=== PATIENT | male | born 1965 | race American Indian/Alaskan Native ===

== ENCOUNTER 2019-05-07 05:55 | Observation (INO) | payer MEDICARE ==
--- NOTE | 2019-05-07 06:52 | XRay Report ---
CHEST 1 VIEW INDICATION / CLINICAL INFORMATION: Chest Pain. COMPARISON: None available. FINDINGS: SUPPORT DEVICES: Right venous access catheter tip overlies the right atrium HEART / MEDIASTINUM: Heart size is normal. Atherosclerotic changes of the thoracic aorta. LUNGS / PLEURA: Interstitial markings are slightly prominent in both lungs. No pneumothorax. ADDITIONAL FINDINGS: Mild subsegmental atelectasis is identified in the right lower lobe. IMPRESSION: 1. Mild interstitial opacity. Signer Name: Vladimir Marmolejo MD Signed: 05/07/2019 6:47 AM Workstation Name: [id number]
[2019-05-07 07:10] LABS: Basophils # (Auto) 0.1 K/mm3 (0.0-0.1); Eosinophils # (Auto) 0.2 K/mm3 (0.0-0.4); Hematocrit 46.3 % (35.5-45.6); Hemoglobin 15.8 gm/dl (11.8-15.2); Lymphocytes # (Auto) 1.2 K/mm3 (1.2-5.4); Mean Corpuscular HGB Conc 34 % (32-34); Mean Corpuscular Volume 101 fl (84-94); Monocytes # (Auto) 0.9 K/mm3 (0.0-0.8); Monocytes % (Auto) 10.9 % (0.0-7.3); Red Blood Count 4.59 M/mm3 (3.65-5.03); Red Cell Distribution Width 17.6 % (13.2-15.2)
[2019-05-07 07:34] LABS: Calcium 9.6 mg/dL (8.4-10.2)
--- NOTE | 2019-05-07 08:14 | Emergency Department Report ---
ED General Adult HPI - General Chief complaint: Sore Throat Stated complaint: GENERAL ILLNESS Time Seen by Provider: 05/07/19 08:07 Source: patient, EMS Mode of arrival: Wheelchair Limitations: No Limitations - History of Present Illness Initial comments: Patient is a 54-year-old male that presents to emergency room with complaints of weakness, sore throat and body aches. Patient states this started yesterday. Patient states he went to his dialysis today but they were unable to do his dialysis due to his blood pressure being high. Patient denies chest pain shortness of breath. Patient denies fever. Patient denies chills. Patient denies nausea vomiting. Patient states his sore throat is a 6 out of 10. Patient states the pain is better with rest and worse with swallowing and eating. -: Sudden Consistency: constant Improves with: rest Worsens with: movement Associated Symptoms: cough, malaise. denies: confusion, chest pain, diaphoresis, fever/chills, headaches, loss of appetite, nausea/vomiting, rash, seizure, shortness of breath, syncope, weakness - Related Data Home Medications Medication Instructions Recorded Confirmed Last Taken Carvedilol [Coreg] 25 mg PO BID 07/22/13 04/05/16 11/29/15 Darunavir [Prezista] 800 mg PO QDAY 07/22/13 04/05/16 11/29/15 Pantoprazole [Protonix TAB] 40 mg PO QDAY 07/22/13 04/05/16 11/29/15 Ritonavir [Norvir] 100 mg PO QDAY 07/22/13 04/05/16 11/29/15 dilTIAZem XT (NF) [Taztia Xt (Nf)] 360 mg PO QDAY 07/22/13 04/05/16 11/29/15 hydrALAZINE [Apresoline TAB] 50 mg PO TID 07/22/13 04/05/16 11/29/15 Doxercalciferol 2.5 mcg IV Q48HR 11/10/14 04/05/16 11/29/15 Epoetin Levy 10,000 Unit [Procrit] 10,000 units SQ Q48HR 11/10/14 04/05/16 11/29/15 diphenhydrAMINE [Benadryl CAP] 25 mg PO Q6HR PRN 11/10/14 04/05/16 11/29/15 lamiVUDine [Epivir] 50 mg PO 3XW 11/10/14 04/05/16 11/29/15 Abacavir [Ziagen TAB] 300 mg PO BID 10/01/15 04/05/16 11/29/15 Abacavir [Ziagen TAB] 300 mg PO BID 10/01/15 04/05/16 11/29/15 Sevelamer Carbonate [Renvela] 800 mg PO 5XD 10/01/15 04/05/16 11/29/15 levETIRAcetam [Keppra TAB] 500 mg PO BID 10/01/15 04/05/16 11/29/15 Acetaminophen [Tylenol] 650 mg PO Q6HR PRN 04/05/16 04/05/16 Unknown AtorvaSTATin [Lipitor] 20 mg PO QDAY 04/05/16 04/05/16 Unknown Gemfibrozil [Lopid] 600 mg PO BID 04/05/16 04/05/16 Unknown Warfarin [Coumadin] 5 mg PO QDAY 04/05/16 04/05/16 Unknown Previous Rx's Medication Instructions Recorded Last Taken Type HYDROcodone/APAP 5-325 [[place] 1 each PO Q6HR PRN #20 tablet 01/02/16 Unknown Rx 5/325] Allergies Allergy/AdvReac Type Severity Reaction Status Date / Time No Known Allergies Allergy Verified 04/05/16 10:48 ED Review of Systems ROS: Stated complaint: GENERAL ILLNESS Other details as noted in HPI Constitutional: weakness. denies: chills, fever Eyes: denies: eye pain, eye discharge, vision change ENT: throat pain. denies: ear pain Respiratory: cough. denies: shortness of breath, wheezing Cardiovascular: denies: chest pain, palpitations Endocrine: no symptoms reported Gastrointestinal: denies: abdominal pain, nausea, diarrhea Genitourinary: denies: urgency, dysuria Musculoskeletal: denies: back pain, joint swelling, arthralgia Skin: denies: rash, lesions Neurological: denies: headache, weakness, paresthesias Psychiatric: denies: anxiety, depression Hematological/Lymphatic: denies: easy bleeding, easy bruising ED Past Medical Hx - Past Medical History Previous Medical History?: Yes Hx Hypertension: Yes Hx CVA: Yes Hx Heart Attack/AMI: No Hx Congestive Heart Failure: Yes Hx Diabetes: No Hx GERD: Yes Hx Renal Disease: Yes (M_W_F, last dialyzed yesterday) Hx Sickle Cell Disease: No Hx Seizures: Yes Hx Asthma: No Hx COPD: No Hx HIV: Yes Additional medical history: fistula right upper arm - Surgical History Past Surgical History?: Yes Additional Surgical History: right arm shunt /dialysis. Hemodialysis on Sunday - Family History Family history: no significant - Social History Smoking Status: Current Every Day Smoker Substance Use Type: None - Medications Home Medications: Home Medications Medication Instructions Recorded Confirmed Last Taken Type Carvedilol [Coreg] 25 mg PO BID 07/22/13 04/05/16 11/29/15 History Darunavir [Prezista] 800 mg PO QDAY 07/22/13 04/05/16 11/29/15 History Pantoprazole [Protonix TAB] 40 mg PO QDAY 07/22/13 04/05/16 11/29/15 History Ritonavir [Norvir] 100 mg PO QDAY 07/22/13 04/05/16 11/29/15 History dilTIAZem XT (NF) [Taztia Xt (Nf)] 360 mg PO QDAY 07/22/13 04/05/16 11/29/15 History hydrALAZINE [Apresoline TAB] 50 mg PO TID 07/22/13 04/05/16 11/29/15 History Doxercalciferol 2.5 mcg IV Q48HR 11/10/14 04/05/16 11/29/15 History Epoetin Levy 10,000 Unit [Procrit] 10,000 units SQ Q48HR 11/10/14 04/05/16 11/29/15 History diphenhydrAMINE [Benadryl CAP] 25 mg PO Q6HR PRN 11/10/14 04/05/16 11/29/15 Hist ory lamiVUDine [Epivir] 50 mg PO 3XW 11/10/14 04/05/16 11/29/15 History Abacavir [Ziagen TAB] 300 mg PO BID 10/01/15 04/05/16 11/29/15 History Abacavir [Ziagen TAB] 300 mg PO BID 10/01/15 04/05/16 11/29/15 History Sevelamer Carbonate [Renvela] 800 mg PO 5XD 10/01/15 04/05/16 11/29/15 History levETIRAcetam [Keppra TAB] 500 mg PO BID 10/01/15 04/05/16 11/29/15 History HYDROcodone/APAP 5-325 [[place] 1 each PO Q6HR PRN #20 tablet 01/02/16 04/05/16 Unknown Rx 5/325] Acetaminophen [Tylenol] 650 mg PO Q6HR PRN 04/05/16 04/05/16 Unknown History AtorvaSTATin [Lipitor] 20 mg PO QDAY 04/05/16 04/05/16 Unknown History Gemfibrozil [Lopid] 600 mg PO BID 04/05/16 04/05/16 Unknown History Warfarin [Coumadin] 5 mg PO QDAY 04/05/16 04/05/16 Unknown History ED Physical Exam - General Limitations: No Limitations General appearance: alert, in no apparent distress - Head Head exam: Present: atraumatic, normocephalic - Eye Eye exam: Present: normal appearance - ENT ENT exam: Present: mucous membranes moist - Expanded ENT Exam Expanded Throat exam: Positive: tonsillar erythema - Neck Neck exam: Present: normal inspection - Respiratory Respiratory exam: Present: normal lung sounds bilaterally. Absent: respiratory distress - Cardiovascular Cardiovascular Exam: Present: regular rate, normal rhythm. Absent: systolic murmur, diastolic murmur, rubs, gallop - GI/Abdominal GI/Abdominal exam: Present: soft, normal bowel sounds - Rectal Rectal exam: Present: deferred - Extremities Exam Extremities exam: Present: normal inspection - Back Exam Back exam: Present: normal inspection - Neurological Exam Neurological exam: Present: alert, oriented X3 - Psychiatric Psychiatric exam: Present: normal affect, normal mood - Skin Skin exam: Present: warm, dry, intact, normal color. Absent: rash ED Course Vital Signs 05/07/19 05/07/19 05/07/19 06:12 08:09 08:11 Temperature 97.6 F Pulse Rate 59 L 63 Respiratory 18 14 Rate Blood Pressure 142/86 167/99 O2 Sat by Pulse 97 95 93 Oximetry 05/07/19 05/07/19 05/07/19 08:12 08:30 09:00 Temperature Pulse Rate 69 66 Respiratory 21 15 Rate Blood Pressure 154/93 158/93 O2 Sat by Pulse 95 93 89 Oximetry 05/07/19 05/07/19 05/07/19 09:30 10:00 10:31 Temperature Pulse Rate 64 60 58 L Respiratory 18 14 12 Rate Blood Pressure 160/99 182/102 182/102 O2 Sat by Pulse 96 98 97 Oximetry 05/07/19 05/07/19 05/07/19 10:37 10:39 10:41 Temperature Pulse Rate 59 L 61 63 Respiratory 13 13 16 Rate Blood Pressure 182/102 182/102 182/102 O2 Sat by Pulse 85 87 Oximetry 05/07/19 05/07/19 05/07/19 10:43 10:45 10:47 Temperature Pulse Rate 61 58 L 56 L Respiratory 19 15 11 L Rate Blood Pressure 182/102 182/102 182/102 O2 Sat by Pulse 89 Oximetry 05/07/19 05/07/19 05/07/19 10:49 10:51 10:53 Temperature Pulse Rate 58 L 60 66 Respiratory 18 18 13 Rate Blood Pressure 182/102 182/102 182/102 O2 Sat by Pulse Oximetry 05/07/19 05/07/19 05/07/19 10:55 10:57 10:59 Temperature Pulse Rate 65 60 64 Respiratory 14 16 12 Rate Blood Pressure 182/102 182/102 182/102 O2 Sat by Pulse Oximetry 05/07/19 05/07/19 05/07/19 11:01 11:03 11:05 Temperature Pulse Rate 65 64 69 Respiratory 10 L 16 13 Rate Blood Pressure 182/102 182/102 182/102 O2 Sat by Pulse Oximetry 05/07/19 05/07/19 05/07/19 11:07 11:09 11:11 Temperature Pulse Rate 63 58 L 61 Respiratory 19 17 12 Rate Blood Pressure 182/102 182/102 182/102 O2 Sat by Pulse Oximetry 05/07/19 05/07/19 05/07/19 11:13 11:15 11:17 Temperature Pulse Rate 61 63 58 L Respiratory 18 18 16 Rate Blood Pressure 182/102 182/102 182/102 O2 Sat by Pulse Oximetry 05/07/19 05/07/19 05/07/19 11:19 11:21 11:23 Temperature Pulse Rate 55 L 63 62 Respiratory 18 14 23 Rate Blood Pressure 182/102 182/102 182/102 O2 Sat by Pulse Oximetry 07/05/07/19 05/07/19 11:25 11:27 11:29 Temperature Pulse Rate 57 L 70 70 Respiratory 16 17 14 Rate Blood Pressure 182/102 182/102 182/102 O2 Sat by Pulse Oximetry 05/07/19 05/07/19 05/07/19 11:31 11:33 11:35 Temperature Pulse Rate 64 60 62 Respiratory 13 13 21 Rate Blood Pressure 182/102 182/102 182/102 O2 Sat by Pulse 81 L Oximetry 05/07/19 05/07/19 05/07/19 11:37 11:39 11:41 Temperature Pulse Rate 60 64 59 L Respiratory 14 19 25 H Rate Blood Pressure 182/102 182/102 182/102 O2 Sat by Pulse 83 L Oximetry 05/07/19 05/07/19 05/07/19 11:43 11:45 11:47 Temperature Pulse Rate 59 L 63 60 Respiratory 25 H 18 11 L Rate Blood Pressure 182/102 182/102 182/102 O2 Sat by Pulse Oximetry 05/07/19 05/07/19 05/07/19 11:49 11:51 11:52 Temperature Pulse Rate 56 L 56 L 55 L Respiratory 17 17 16 Rate Blood Pressure 182/102 164/94 164/94 O2 Sat by Pulse 95 92 Oximetry 05/07/19 05/07/19 12:20 12:45 Temperature Pulse Rate 63 66 Respiratory Rate Blood Pressure 176/98 177/94 O2 Sat by Pulse Oximetry - Reevaluation(s) Reevaluation #1: Discussed all results with patient. Patient agrees with plan of care. Patient to be admitted to the hospitalist service. 05/07/19 11:05 - Consultations Consultation #1: nephro consult. nephro states to have pt admitted to hospitalists and place consult. 05/07/19 11:22 Consultation #2: Hospitalist consultation for admission. Hospitalist to admit patient and assume care of patient. Bridging orders placed 05/07/19 11:41 ED Medical Decision Making - Lab Data Result diagrams: 05/07/19 06:46 05/07/19 06:46 - EKG Data -: EKG Interpreted by Tx EKG shows normal: sinus rhythm, axis, intervals, QRS complexes, ST-T waves Rate: bradycardia - Radiology Data Radiology results: report reviewed CHEST 1 VIEW INDICATION / CLINICAL INFORMATION: Chest Pain. COMPARISON: None available. FINDINGS: SUPPORT DEVICES: Right venous access catheter tip overlies the right atrium HEART / MEDIASTINUM: Heart size is normal. Atherosclerotic changes of the thoracic aorta. LUNGS / PLEURA: Interstitial markings are slightly prominent in both lungs. No pneumothorax. ADDITIONAL FINDINGS: Mild subsegmental atelectasis is identified in the right lower lobe. IMPRESSION: 1. Mild interstitial opacity. - Medical Decision Making Patient is a 54-year-old male that presents emergent with complaints of weakness and sore throat, cough and high blood pressure. Patient was at his dialysis center and they found his blood pressure medicine to the ER for evaluation. Patient sore throat cough secondary to a viral upper respiratory infection. Patient's labs done and found to have hyperkalemia. Patient will be admitted for inpatient dialysis since the patient has R did miss his dialysis she will require urgent dialysis due to his potassium level. Nephrology consultation. Patient admitted to the hospitalist service. - Differential Diagnosis URI previous sore throat. Cough. High blood pressure. Missed dialysis Critical Care Time: Yes Critical care attestation.: If time is entered above; I have spent that time in minutes in the direct care of this critically ill patient, excluding procedure time. Critical Care Time: 35 minutes ED Disposition Clinical Impression: Hyperkalemia, Sore throat (viral), CKD (chronic kidney disease) requiring chronic dialysis, Cough, Missed dialysis URI (upper respiratory infection) Qualifiers: URI type: unspecified viral URI Qualified Code(s): J06.9 - Acute upper respiratory infection, unspecified Disposition: 09 OP ADMIT IP TO THIS HOSP Is pt being admited?: Yes Does the pt Need Aspirin: No Condition: Critical Time of Disposition: 11:26
[2019-05-07 09:11] LABS: Chol/HDL Ratio 3.95 %
[2019-05-07 11:03] LABS: Platelet Count 98 K/mm3 (140-440)
--- NOTE | 2019-05-07 11:20 | Consultation ---
History of Present Illness - Reason for Consult Consult date: 05/07/19 end stage renal disease, hyperkalemia - History of Present Illness The patient is a 54 YO male with history significant for Hypertension, HLD, ESRD on hemodialysis (MWF), Right atrial thrombus on anticoagulation with Coumadin diagnosed in October 2014, Tobacco smoking and HIV who presented to [facility] with complaints of sore throat, body aches and not feeling well. The symptoms started yesterday. Patient states that he went to his dialysis today morning but decided to come to the ER as he was not feeling well. Patient denies fever, chills, chest pain, shortness of breath, N, V, D, dizziness, syncope, leg swelling or rash. He was last dialyzed 2 days ago. His potassium is 5.7 today. Nephrology was consulted to manage ESRD. Medications and Allergies Allergies Allergy/AdvReac Type Severity Reaction Status Date / Time No Known Allergies Allergy Verified 04/05/16 10:48 Home Medications Medication Instructions Recorded Confirmed Last Taken Type Carvedilol [Coreg] 25 mg PO BID 07/22/13 05/07/19 05/06/19 History Darunavir [Prezista] 800 mg PO QDAY 07/22/13 05/07/19 05/06/19 History Ritonavir [Norvir] 100 mg PO QDAY 07/22/13 05/07/19 05/06/19 History dilTIAZem XT (NF) [Taztia Xt (Nf)] 360 mg PO QDAY 07/22/13 05/07/19 05/06/19 History hydrALAZINE [Apresoline TAB] 50 mg PO TID 07/22/13 05/07/19 05/06/19 History Doxercalciferol 2.5 mcg IV Q48HR 11/10/14 05/07/19 05/05/19 History Epoetin Levy 10,000 Unit [Procrit] 10,000 units SQ Q48HR 11/10/14 05/07/19 05/05/19 History diphenhydrAMINE [Benadryl CAP] 25 mg PO Q6HR PRN 11/10/14 05/07/19 05/06/19 History lamiVUDine [Epivir] 50 mg PO 3XW 11/10/14 05/07/19 05/06/19 History Abacavir [Ziagen TAB] 300 mg PO BID 10/01/15 05/07/19 05/06/19 History Abacavir [Ziagen TAB] 300 mg PO BID 10/01/15 05/07/19 05/06/19 History levETIRAcetam [Keppra TAB] 500 mg PO BID 10/01/15 05/07/19 05/06/19 History Acetaminophen [Tylenol] 650 mg PO Q6HR PRN 04/05/16 05/07/19 05/06/19 History AtorvaSTATin [Lipitor] 20 mg PO QDAY 04/05/16 05/07/19 05/06/19 History Gemfibrozil [Lopid] 600 mg PO BID 04/05/16 05/07/19 05/06/19 History Warfarin [Coumadin] 5 mg PO QDAY 04/05/16 05/07/19 05/06/19 History Ferric Citrate (Nf) [Auryxia] 410 mg PO TID 05/07/19 05/07/19 05/06/19 History Review of Systems Constitutional: fatigue, malaise, no weight loss, no weight gain, no fever, no chills, no anorexia, no weakness, no poor appetite Cardiovascular: high blood pressure, no chest pain, no orthopnea, no palpitations, no edema, no syncope, no lightheadedness, no shortness of breath, no dyspnea on exertion, no paroxysmal nocturnal dyspnea, no leg edema Respiratory: no cough, no hemoptysis, no shortness of breath, no dyspnea on exertion, no home oxygen Gastrointestinal: no abdominal pain, no nausea, no vomiting, no diarrhea, no melena, no hematochezia Genitourinary Male: no dysuria, no hematuria Rectal: no bleeding Musculoskeletal: no morning stiffness, no muscle weakness, no muscle cramps, no gait dysfunction Integumentary: no rash, no redness, no sores, no wounds, no jaundice Neurological: no seizures, no syncope, no convulsions, no aphasia, no change in speech, no change in mentation, no confusion Psychiatric: no memory loss Exam - Vital Signs Vital signs: Vital Signs Temp Pulse Resp BP Pulse Ox 97.6 F 59 L 18 142/86 97 05/07/19 06:12 05/07/19 06:12 05/07/19 06:12 05/07/19 06:12 05/07/19 06:12 - General Appearance General appearance: well-developed, well-nourished, appears stated age, other (no distress) EENT: ATNC, PERRL, mucous membranes moist, hearing intact, vision intact Neck: Present: neck supple, trachea midline Respiratory: Rales Heart: regular, S1S2, no murmurs Gastrointestinal: Present: normoactive bowel sounds. Absent: tenderness, distended Integumentary: no rash, warm and dry Neurologic: no focal deficit, no asterixis, alert and oriented x3 Musculoskeletal: Present: other (R arm AVG, no edema) Psychiatric: cooperative Results - Lab Results 05/07/19 06:46 05/07/19 06:46 Most recent lab results Calcium 9.6 mg/dL (8.4-10.2) 05/07/19 06:46 Assessment and Plan 1. ESRD: Patient is on maintenance hemodialysis three times a week, MWF schedule. HD today, orders placed. 2. FEN: Hyperkalemia, HD today. Volume overload, UF with HD today. 3. Pharyngitis: Culture was ordered in the ER. 4. H/o right atrial thrombus: On Coumadin. Follow INR. 5. HTN: BP well controlled. 6. HIV.
[2019-05-07] MEDS ORDERED: NACL 0.9% 100 ML IV PRN (11:39)
[2019-05-07 14:08] LABS: Hepatitis B Surface Antigen Non-Reactive (Negative); Hepatitis C Virus Antibody Non-Reactive (NonReactive)
[2019-05-07 16:20] VITALS: BP 127/95
[2019-05-07] MEDS ORDERED: NACL 0.9 (PRIMING MACHINE ONLY DIALYSIS) MC ONE (18:38)
--- NOTE | 2019-05-07 19:50 | Event Note ---
Date: 05/07/19 See history and physical in the reports Hyperkalemia End-stage renal disease
--- NOTE | 2019-05-07 20:19 | Discharge Summary ---
Providers - Providers Date of Admission: 05/07/19 11:48 Date of discharge: 05/07/19 Attending physician: FANTA CAREY 05/07/19 11:18 Consult to Physician [CONS] Stat Comment: DR BRANDIN FONTENOT W/ DR CEDILLO @[id number] Consulting Provider: SIMA CEDILLO Physician Instructions: Reason For Exam: hd [facility] Hospital[facility] Condition: Critical Hospital course: Patient is admitted for hyperkalemia and pharyngitis Patient also admitted for high blood pressure Patient had emergent hemodialysis After hemodialysis blood pressure came down to normal levels 127/95 Patient had elevated troponin levels secondary to incisional disease Patient wants to be discharged after the hemodialysis Patient doing well Discharge diagnosis Hypertensive emergency ESRD Anemia Hyperkalemia Elevated troponin level Disposition: DC-01 TO HOME OR SELFCARE Core Measure Documentation - Palliative Care Palliative Care/ Comfort Measures: Not Applicable - Core Measures Any of the following diagnoses?: none Exam - Constitutional Vitals: Temp Pulse Resp BP Pulse Ox 98.4 F 68 18 127/95 98 05/07/19 16:18 05/07/19 16:16 05/07/19 16:20 05/07/19 16:18 05/07/19 16:16 General appearance: Present: no acute distress, well-nourished - EENT Eyes: Present: PERRL ENT: hearing intact, clear oral mucosa - Neck Neck: Present: supple, normal ROM - Respiratory Respiratory effort: normal Respiratory: bilateral: CTA - Cardiovascular Heart Sounds: Present: S1 & S2. Absent: rub, click - Extremities Extremities: pulses symmetrical, No edema Peripheral Pulses: within normal limits - Abdominal General gastrointestinal: Present: soft, non-tender, non-distended, normal bowel sounds Male genitourinary: Present: normal - Integumentary Integumentary: Present: clear, warm, dry - Musculoskeletal Musculoskeletal: gait normal, strength equal bilaterally - Psychiatric Psychiatric: appropriate mood/affect, intact judgment & insight - Neurologic Neurologic: CNII-XII intact, moves all extremities Plan Activity: no restrictions Diet: renal Follow up with: KEVIN CAMACHOCHESAPEAKE MD MARIZOL [Primary Care Provider] - 3-5 Days CHRISTIANO GOLDSTEIN MD [Staff Physician] - 7 Days
--- NOTE | 2019-05-07 20:22 | History and Physical Report ---
CHIEF COMPLAINT: 1. Sore throat. 2. Generalized body aches. HISTORY OF PRESENT ILLNESS: A 54-year-old male with history of HIV, hypertension, end-stage renal disease, comes into the ER for sore throat, generalized weakness and body aches. All these symptoms started yesterday. The patient went to the dialysis and was unable to do his dialysis because of his high blood pressure and was sent from dialysis center to the Emergency Room for treatment of the high blood pressure. The patient denies nausea or vomiting. No fever. The patient states that the sore throat is about 6/10. Dry cough present. No productive cough. Generalized body aches present. PAST MEDICAL HISTORY: Significant for hypertension, HIV, gastroesophageal reflux disease, anemia secondary to end-stage renal disease, seizure disorder, hyperlipidemia, hypertriglyceridemia, anticoagulation. CURRENT MEDICATIONS: On the chart. PAST SURGICAL HISTORY: Significant for right arm shunt dialysis, hemodialysis on Sunday, Sunday, and Sunday. FAMILY HISTORY: Hypertension. SOCIAL HISTORY: Current every day smoker, a pack a day. REVIEW OF SYSTEMS: Significant for sore throat and generalized weakness and generalized body aches. Otherwise, review of systems negative. A 14-point review of systems done. PHYSICAL EXAMINATION: GENERAL: Middle-aged male, cooperative during examination. VITAL SIGNS: Blood pressure is 149/92, the initial blood pressure was 182/102; temperature is 98; pulse is 58; respirations 14. HEENT: Unremarkable. Posterior pharynx is normal. NECK: Supple, no lymphadenopathy, no thyromegaly. LUNGS: Clear to auscultation and percussion. Good air entry. CARDIOVASCULAR: S1, S2 heard. No gallop, no murmur, no rub. Apical impulse in left fifth intercostal space and midclavicular line. ABDOMEN: Soft and benign. No hepatosplenomegaly, no guarding, no rigidity. Hernial orifices are normal. EXTREMITIES: Good pedal pulses. No pedal edema. NERVOUS SYSTEM: Alert and oriented x 4, nonfocal exam. SKIN: Normal. LABORATORY DATA: White count is 8200, H and H is 15.8 and 46.3, platelet count is 98. Sodium is 130, potassium is 5.7, chloride is 89.5, BUN and creatinine is 33 and 11.0, alkaline phosphatase is 221. Troponin is 0.060, 0.058 and 0.072. Hepatitis profile is negative. A chest x-ray was normal. No acute findings. ASSESSMENT AND PLAN: 1. Hypertensive emergency. The patient to get his regular blood pressure medications. Hydralazine 10 mg IV p.r.n. The patient was given hydralazine in the Emergency Room. 2. End-stage renal disease. Continue hemodialysis. 3. Hyperkalemia. Continue low potassium bath hemodialysis to bring the potassium down. 4. Human immunodeficiency virus. Continue antiretroviral agents. 5. Seizure disorder. Continue with Keppra 500 mg twice a day. 6. Hypertriglyceridemia. Continue gemfibrozil. 7. Anemia. Continue ferrous sulfate and Epogen. 8. Anticoagulation. Continue Coumadin and monitor his INR. 9. Deep venous thrombosis prophylaxis with heparin 5000 q. 12 and gastrointestinal prophylaxis. In summary, the patient has hypertensive emergency, end-stage renal disease, anemia, elevated troponin which is nonspecific, seizure disorder, GERD, hyperlipidemia and hypertriglyceridemia. JOB# [id number] DARIAM/NTS
[2019-05-07] MEDS ORDERED: LOPID PO SCH (22:00)
[2019-05-07] MEDS ORDERED: ZIAGEN PO SCH (22:00)
[2019-05-07] MEDS ORDERED: KEPPRA PO SCH (22:00)
[2019-05-08] MEDS ORDERED: APRESOLINE PO SCH (08:00)
[2019-05-08] MEDS ORDERED: EPIVIR PO SCH (10:00)
[2019-05-08] MEDS ORDERED: NORVIR PO SCH (10:00)
== END 2019-05-07 20:10 | disposition home or self-care (01) ==
LOC: ED 05:55 → 3A 11:48
PROVIDERS: ADMIT Internal Medicine; ATTEND Internal Medicine
DX: I16.1 Hypertensive emergency (principal); E87.5 Hyperkalemia; I13.2 Hypertensive heart and chronic kidney disease with heart failure and with stage 5 chronic kidney disease, or end stage renal disease; I50.9 Heart failure, unspecified; F17.210 Nicotine dependence, cigarettes, uncomplicated; E78.5 Hyperlipidemia, unspecified; J02.9 Acute pharyngitis, unspecified; N18.6 End stage renal disease; B20 Human immunodeficiency virus [HIV] disease; G40.909 Epilepsy, unspecified, not intractable, without status epilepticus; E78.1 Pure hyperglyceridemia; D63.1 Anemia in chronic kidney disease; R79.89 Other specified abnormal findings of blood chemistry; K21.9 Gastro-esophageal reflux disease without esophagitis; Z99.2 Dependence on renal dialysis; Z79.899 Other long term (current) drug therapy
CPT/HCPCS: 36415; 71045; 80053; 80061; 80074; 83690; 84484; 85025; 87116; 87430; 93005; 93010; 99291; G0257; G0378; J7030

== ENCOUNTER 2020-09-29 06:32 | Inpatient (IN) | payer MEDICARE ==
--- NOTE | 2020-09-29 12:24 | XRay Report ---
CHEST 1 VIEW INDICATION: cough. COMPARISON: 05/07/2020 FINDINGS: SUPPORT DEVICES: Stable support device positioning. HEART: Within normal limits. LUNGS/PLEURA: Subtle patchy bibasilar airspace disease. ADDITIONAL FINDINGS: None. IMPRESSION: 1. Pulmonary findings as above. Signer Name: Fletcher Iqbal MD Signed: 09/29/2020 12:19 PM Workstation Name: [id number]
[2020-09-29] MEDS ORDERED: traMADol 50 MG TAB PO ONE (12:51)
--- NOTE | 2020-09-29 13:15 | Emergency Department Report ---
ED General Adult HPI - General Chief complaint: Dizziness Stated complaint: FLU LIKE SYMPTOMS Time Seen by Provider: 09/29/20 11:48 Source: patient, EMS Mode of arrival: Wheelchair Limitations: No Limitations - History of Present Illness Initial comments: This is a 55-year-old with HIV on chronic hemodialysis chronically anticoagulated who was sent by his hemodialysis clinic because he referred flulike symptoms. He tells me he has been weak in general. He has had a cough but he states it has been occasional. He does not refer fever. He is really not actively complaining of any specific symptoms at the time of my encounter. He states that he has chronic pain in general and takes tramadol. He does not complain of any acute painful area. Last discharge summary few months ago: (1) Acute encephalopathy Current Visit: Yes Status: Acute Plan to address problem: Etiology unclear Probably metabolic secondary to uremia and possible seizure which was not witnessed MRI was ordered but not done Patient's confusion and encephalopathy improved back to normal hence patient being discharged (2) End-stage renal disease needing dialysis Current Visit: Yes Status: Chronic Plan to address problem: Nephrology consulted Due for dialysis on Sunday (3) HIV (human immunodeficiency virus infection) Current Visit: Yes Status: Chronic Qualifiers: HIV symptom status: asymptomatic Qualified Code(s): Z21 - Asymptomatic human immunodeficiency virus [HIV] infection status Plan to address problem: Continue antiretrovirals (4) Paroxysmal atrial fibrillation Current Visit: Yes Status: Chronic Plan to address problem: Continue Coumadin and monitor INR (5) Hypertension Current Visit: No Status: Chronic Qualifiers: Hypertension type: essential hypertension Qualified Code(s): I10 - Essential (primary) hypertension Plan to address problem: Continue antihypertensives (6) Seizure Current Visit: No Status: Chronic Qualifiers: Convulsion type: unspecified Qualified Code(s): R56.9 - Unspecified convulsions Plan to address problem: Continue Lamictal (7) Hyperlipidemia Current Visit: Yes Status: Chronic Qualifiers: Hyperlipidemia type: mixed hyperlipidemia Qualified Code(s): E78.2 - Mixed hyperlipidemia Plan to address problem: Continue statins and fenofibrate (8) Anemia Current Visit: No Status: Chronic Qualifiers: Anemia type: due to chronic kidney disease Plan to address problem: Patient on Epogen (9) Elevated troponin Current Visit: Yes Status: Chronic Plan to address problem: NSTEMI 2 Secondary to end-stage renal disease No work-up -: days(s) Associated Symptoms: denies other symptoms, weakness - Related Data Home Medications Medication Instructions Recorded Confirmed Last Taken Darunavir [Prezista] 800 mg PO QDAY 07/22/13 05/08/20 05/06/19 Ritonavir 100 mg PO QDAY 07/22/13 05/08/20 05/06/19 carvediloL [Coreg] 25 mg PO BID 07/22/13 05/08/20 05/06/19 dilTIAZem XT (NF) [Taztia Xt (Nf)] 360 mg PO QDAY 07/22/13 05/08/20 05/06/19 hydrALAZINE [Apresoline TAB] 50 mg PO TID 07/22/13 05/08/20 05/06/19 lamiVUDine [Epivir] 50 mg PO 3XW 11/10/14 05/08/20 05/06/19 Abacavir [Ziagen TAB] 300 mg PO BID 10/01/15 05/08/20 05/06/19 Abacavir [Ziagen TAB] 300 mg PO BID 10/01/15 05/08/20 05/06/19 levETIRAcetam [Keppra TAB] 500 mg PO BID 10/01/15 05/08/20 05/06/19 AtorvaSTATin [Lipitor] 20 mg PO QDAY 04/05/16 05/08/20 05/06/19 Gemfibrozil [Lopid] 600 mg PO BID 04/05/16 05/08/20 05/06/19 Warfarin [Coumadin] 5 mg PO QDAY 04/05/16 05/08/20 05/06/19 Ferric Citrate (Nf) [Auryxia] 410 mg PO TID 05/07/19 05/08/20 05/06/19 Allergies Allergy/AdvReac Type Severity Reaction Status Date / Time No Known Allergies Allergy Verified 04/05/16 10:48 ED Review of Systems ROS: Stated complaint: FLU LIKE SYMPTOMS Other details as noted in HPI Constitutional: weakness Eyes: denies: eye pain, vision change ENT: denies: throat pain, epistaxis Respiratory: SOB with exertion. denies: orthopnea, stridor Cardiovascular: denies: chest pain, palpitations Endocrine: no symptoms reported Gastrointestinal: denies: abdominal pain, vomiting Genitourinary: as per HPI Musculoskeletal: other (Essentially chronic allodynia) Skin: denies: rash, lesions Neurological: denies: headache, weakness Psychiatric: denies: anxiety, depression Hematological/Lymphatic: denies: easy bleeding, easy bruising ED Past Medical Hx - Past Medical History Hx Hypertension: Yes Hx CVA: Yes Hx Heart Attack/AMI: No Hx Congestive Heart Failure: Yes Hx Diabetes: No Hx GERD: Yes Hx Renal Disease: Yes (M_W_F, last dialyzed M) Hx Sickle Cell Disease: No Hx Seizures: Yes Hx Asthma: Yes (bronchitis) Hx COPD: No Hx HIV: Yes Additional medical history: fistula right upper arm - Surgical History Additional Surgical History: right arm shunt /dialysis. Hemodialysis on Sunday - Social History Smoking Status: Current Every Day Smoker - Medications Home Medications: Home Medications Medication Instructions Recorded Confirmed Last Taken Type Darunavir [Prezista] 800 mg PO QDAY 07/22/13 05/08/20 05/06/19 History Ritonavir 100 mg PO QDAY 07/22/13 05/08/20 05/06/19 History carvediloL [Coreg] 25 mg PO BID 07/22/13 05/08/20 05/06/19 History dilTIAZem XT (NF) [Taztia Xt (Nf)] 360 mg PO QDAY 07/22/13 05/08/20 05/06/19 History hydrALAZINE [Apresoline TAB] 50 mg PO TID 07/22/13 05/08/20 05/06/19 History lamiVUDine [Epivir] 50 mg PO 3XW 11/10/14 05/08/20 05/06/19 History Abacavir [Ziagen TAB] 300 mg PO BID 10/01/15 05/08/20 05/06/19 History Abacavir [Ziagen TAB] 300 mg PO BID 10/01/15 05/08/20 05/06/19 History levETIRAcetam [Keppra TAB] 500 mg PO BID 10/01/15 05/08/20 05/06/19 History AtorvaSTATin [Lipitor] 20 mg PO QDAY 04/05/16 05/08/20 05/06/19 History Gemfibrozil [Lopid] 600 mg PO BID 04/05/16 05/08/2005/06/19 History Warfarin [Coumadin] 5 mg PO QDAY 04/05/16 05/08/20 05/06/19 History Ferric Citrate (Nf) [Auryxia] 410 mg PO TID 05/07/19 05/08/20 05/06/19 History ED Physical Exam - General Limitations: No Limitations General appearance: alert - Head Head exam: Present: atraumatic - Eye Eye exam: Absent: scleral icterus - ENT ENT exam: Absent: mucous membranes moist - Neck Neck exam: Absent: tenderness, meningismus - Respiratory Respiratory exam: Present: normal lung sounds bilaterally. Absent: respiratory distress - Cardiovascular Cardiovascular Exam: Present: regular rate, normal rhythm. Absent: systolic murmur, diastolic murmur, rubs, gallop - GI/Abdominal GI/Abdominal exam: Present: soft, normal bowel sounds. Absent: distended, tenderness, guarding, rebound - Extremities Exam Extremities exam: Present: other (Shunt right upper extremity) ED Course Vital Signs 09/29/20 09/29/20 09/29/20 06:49 11:19 11:45 Temperature 97.3 F L 97.8 F Pulse Rate 74 75 76 Respiratory 18 18 22 Rate Blood Pressure 140/84 135/76 155/83 O2 Sat by Pulse 100 95 100 Oximetry 09/29/20 09/29/20 09/29/20 11:56 12:01 12:15 Temperature Pulse Rate 92 H 77 75 Respiratory 18 36 H 26 H Rate Blood Pressure 135/53 135/53 O2 Sat by Pulse 95 99 97 Oximetry 09/29/20 09/29/20 09/29/20 12:31 12:45 12:57 Temperature Pulse Rate 77 78 Respiratory 18 20 18 Rate Blood Pressure 135/53 135/53 O2 Sat by Pulse 98 100 Oximetry - Reevaluation(s) Reevaluation #1: Patient was found to have increased pulmonary markings. I suspect that this is fluid overload. However in consideration of his viral prodrome he is admitted as PUI. He has a very low lymphocyte count and an estimated CD4 count would be under 250, total of 700. He is certainly immunocompromise. He would be at high risk for bad outcome should he have a Covid infection. Patient was found to be hyperkalemic. He is not eligible for outpatient dialysis today. I explained the situation to the dialysis nurse practitioner. They will enter dialysis orders. Patient will be admitted by hospitalist staff. 09/29/20 15:20 ED Medical Decision Making - Lab Data Result diagrams: 09/29/20 12:46 09/29/20 12:46 Laboratory Results - last 24 hr 09/29/20 09/29/20 09/29/20 12:46 12:46 12:46 WBC RBC Hgb Hct MCV MCH MCHC RDW Plt Count Lymph % (Auto) [place] % (Auto) Eos % (Auto) Baso % (Auto) Lymph # (Auto) [place] # (Auto) Eos # (Auto) Baso # (Auto) Seg Neutrophils % Seg Neutrophils # PT 38.4 H INR 3.84 H APTT 46.2 H D-Dimer 145.03 Sodium Potassium Chloride Carbon Dioxide Anion Gap BUN Creatinine Estimated GFR BUN/Creatinine Ratio Glucose 100 Lactic Acid Calcium Magnesium Ferritin 1292.0 H Total Bilirubin Direct Bilirubin Indirect Bilirubin AST ALT Alkaline Phosphatase Lactate Dehydrogenase 223 H Troponin T C-Reactive Protein 3.20 H NT-Pro-B Natriuret Pep Total Protein Albumin Albumin/Globulin Ratio Procalcitonin 09/29/20 09/29/20 09/29/20 12:46 12:46 12:46 WBC 5.2 RBC 3.09 L Hgb 10.3 L Hct 30.8 L MCV 100 H MCH 33 H MCHC 33 RDW 19.4 H Plt Count 119 L Lymph % (Auto) 28.4 [place] % (Auto) 9.9 H Eos % (Auto) 3.3 Baso % (Auto) 1.0 Lymph # (Auto) 1.5 [place] # (Auto) 0.5 Eos # (Auto) 0.2 Baso # (Auto) 0.1 Seg Neutrophils % 57.4 Seg Neutrophils # 3.0 PT INR APTT D-Dimer Sodium 133 L Potassium 5.5 H Chloride 88.1 L Carbon Dioxide 29 Anion Gap 21 BUN 59 H Creatinine 13.0 H Estimated GFR 5 BUN/Creatinine Ratio 5 Glucose 101 H Lactic Acid Calcium 10.2 Magnesium 2.90 H Ferritin Total Bilirubin 0.60 Direct Bilirubin 0.3 H Indirect Bilirubin 0.3 AST 13 ALT 8 Alkaline Phosphatase 145 H Lactate Dehydrogenase Troponin T 0.099 H C-Reactive Protein NT-Pro-B Natriuret Pep 522128 H Total Protein 6.5 Albumin 3.7 L Albumin/Globulin Ratio 1.3 Procalcitonin 0.22 09/29/20 12:46 WBC RBC Hgb Hct MCV MCH MCHC RDW Plt Count Lymph % (Auto) [place] % (Auto) Eos % (Auto) Baso % (Auto) Lymph # (Auto) [place] # (Auto) Eos # (Auto) Baso # (Auto) Seg Neutrophils % Seg Neutrophils # PT INR APTT D-Dimer Sodium Potassium Chloride Carbon Dioxide Anion Gap BUN Creatinine Estimated GFR BUN/Creatinine Ratio Glucose Lactic Acid 1.40 Calcium Magnesium Ferritin Total Bilirubin Direct Bilirubin Indirect Bilirubin AST ALT Alkaline Phosphatase Lactate Dehydrogenase Troponin T C-Reactive Protein NT-Pro-B Natriuret Pep Total Protein Albumin Albumin/Globulin Ratio Procalcitonin - EKG Data -: EKG Interpreted by Me EKG shows normal: sinus rhythm - EKG Data Interpretation: other (Left axis deviation/LAFB. LVH. Affect:. Poor R wave progression. Consistent with LVH.) - Radiology Data Radiology results: image reviewed Think most consistent with mild fluid overload but consider other differential for increased airspace markings. Critical care attestation.: If time is entered above; I have spent that time in minutes in the direct care of this critically ill patient, excluding procedure time. ED Disposition Clinical Impression: Hyperkalemia, ESRD needing dialysis, Over-anticoagulated, Person under investigation for COVID-19, CKD (chronic kidney disease) requiring chronic dialysis, Elevated troponin Cardiomyopathy Qualifiers: Cardiomyopathy type: unspecified Qualified Code(s): I42.9 - Cardiomyopathy, unspecified Volume overload Qualifiers: Hypervolemia type: unspecified Qualified Code(s): E87.70 - Fluid overload, unspecified Disposition: OP ADMIT IP TO THIS HOSP Is pt being admited?: Yes Does the pt Need Aspirin: No (Over anticoagulated) Condition: Stable Referrals: PRIMARY CARE, [Primary Care Provider] - 3-5 Days Time of Disposition: 15:23
[2020-09-29 13:17] LABS: Basophils # (Auto) 0.1 K/mm3 (0.0-0.1); Eosinophils # (Auto) 0.2 K/mm3 (0.0-0.4); Eosinophils % (Auto) 3.3 % (0.0-4.3); Hematocrit 30.8 % (35.5-45.6); Hemoglobin 10.3 gm/dl (11.8-15.2); Lymphocytes # (Auto) 1.5 K/mm3 (1.2-5.4); Lymphocytes % (Auto) 28.4 % (13.4-35.0); Mean Corpuscular HGB Conc 33 % (32-34); Mean Corpuscular Volume 100 fl (84-94); Monocytes # (Auto) 0.5 K/mm3 (0.0-0.8); Monocytes % (Auto) 9.9 % (0.0-7.3); Platelet Count 119 K/mm3 (140-440); Red Blood Count 3.09 M/mm3 (3.65-5.03); Red Cell Distribution Width 19.4 % (13.2-15.2)
[2020-09-29 13:25] LABS: INR 3.84 (0.87-1.13); Partial Thromboplastin Time 46.2 Sec. (24.2-36.6)
[2020-09-29 13:36] LABS: Albumin 3.7 g/dL (3.9-5); Bilirubin,Direct 0.3 mg/dL (0-0.2); Calcium 10.2 mg/dL (8.4-10.2)
[2020-09-29 13:37] LABS: C-Reactive Protein 3.2 mg/dL (0.00-1.30)
--- NOTE | 2020-09-29 13:38 | History and Physical Report ---
History of Present Illness Chief complaint: I feel like I have the flu or something History of present illness: 55 YO Male with HIV, ESRD on HD(M,W,F), HTN, HLD, Paroxysmal Atrial Fib, Anemia Chronic Disease, GERD, CHF, Seizure Disorder, Nicotine Dependence presents to ED for evaluation. Patient states that he "has not been feeling well" over the past 4 days with persistent symptoms over the same timeframe. Patient acknowledges fatigue, malaise, weakness, decreased exercise tolerance, dry cough. Patient presented to his outpatient dialysis center today for his routine scheduled dialysis. Prior to dialysis patient reported "I feel to have the flu". EMS was notified and the patient was subsequently transported to [facility] for further care and evaluation. Patient seen and evaluated in the emergency department. Lab and imaging studies reviewed. Patient initiated on coronavirus protocol prior to my evaluation. Patient found to have end-stage renal disease, paroxysmal atrial fibrillation, and symptoms consistent with congestive heart failure. Patient admitted to medical floor and initiated on CHF protocol, as well as coronavirus protocol. Nephrology team consulted in ED. Patient denies chills, chest pain, palpitations, skin rash, recent ill contacts. Patient is uncertain regarding his COVID-19 exposure. Prior admission on 05/07/2020 reviewed. All medication listed at time of admission has been reconciled. Past History Past Medical History: atrial fib, ESRD, GERD, HIV/AIDS, hypertension, hyperlipidemia, other (See HPI) Past Surgical History: Other (Dialysis access) Social history: single, smoking. denies: alcohol abuse, prescription drug abuse Family history: diabetes, hypertension Medications and Allergies Allergies Allergy/AdvReac Type Severity Reaction Status Date / Time No Known Allergies Allergy Verified 04/05/16 10:48 Home Medications Medication Instructions Recorded Confirmed Last Taken Type Darunavir [Prezista] 800 mg PO QDAY 07/22/13 05/08/20 05/06/19 History Ritonavir 100 mg PO QDAY 07/22/13 05/08/20 05/06/19 History carvediloL [Coreg] 25 mg PO BID 07/22/13 05/08/20 05/06/19 History dilTIAZem XT (NF) [Taztia Xt (Nf)] 360 mg PO QDAY 07/22/13 05/08/20 05/06/19 H istory hydrALAZINE [Apresoline TAB] 50 mg PO TID 07/22/13 05/08/20 05/06/19 History lamiVUDine [Epivir] 50 mg PO 3XW 11/10/14 05/08/20 05/06/19 History Abacavir [Ziagen TAB] 300 mg PO BID 10/01/15 05/08/20 05/06/19 History Abacavir [Ziagen TAB] 300 mg PO BID 10/01/15 05/08/20 05/06/19 History levETIRAcetam [Keppra TAB] 500 mg PO BID 10/01/15 05/08/20 05/06/19 History AtorvaSTATin [Lipitor] 20 mg PO QDAY 04/05/16 05/08/20 05/06/19 History Gemfibrozil [Lopid] 600 mg PO BID 04/05/16 05/08/20 05/06/19 History Warfarin [Coumadin] 5 mg PO QDAY 04/05/16 05/08/20 05/06/19 History Ferric Citrate (Nf) [Auryxia] 410 mg PO TID 05/07/19 05/08/20 05/06/19 History Review of Systems Constitutional: fever, fatigue, weakness, malaise Ears, nose, mouth and throat: no ear pain, no ear discharge, no tinnitis, no decreased hearing, no nose pain, no nasal congestion Cardiovascular: no chest pain, no orthopnea, no rapid/irregular heart beat, no lightheadedness Respiratory: cough, shortness of breath, no excessive sputum, no hemoptysis Gastrointestinal: no abdominal pain, no nausea, no vomiting, no diarrhea, no constipation Genitourinary Male: no hematuria, no flank pain, no discharge, no urinary frequency, no urinary hesitancy Rectal: no pain, no incontinence, no bleeding Musculoskeletal: no neck stiffness, no neck pain, no arm numbness/tingling, no shooting leg pain Integumentary: no rash, no pruritis, no redness, no sores, no wounds Neurological: no transient paralysis, no paralysis, no weakness, no parathesias, no numbness, no tingling Psychiatric: no anxiety, no memory loss, no sleep disturbances, no insomnia, no hypersomnia, no change in libido Endocrine: no cold intolerance, no heat intolerance, no polyphagia, no polyuria Hematologic/Lymphatic: no easy bruising, no easy bleeding Allergic/Immunologic: no urticaria, no allergic rhinitis Exam - Constitutional Vitals: Temp Pulse Resp BP Pulse Ox 97.8 F 78 18 135/53 100 09/29/20 11:19 09/29/20 12:45 09/29/20 12:57 09/29/20 12:45 09/29/20 12:45 General appearance: Present: mild distress - EENT Eyes: Present: PERRL ENT: hearing intact, clear oral mucosa - Neck Neck: Present: supple, normal ROM - Respiratory Respiratory effort: normal Respiratory: bilateral: CTA - Cardiovascular Rhythm: irregularly irregular Heart Sounds: Present: S1 & S2. Absent: rub, click - Extremities Extremities: pulses symmetrical, No edema Peripheral Pulses: within normal limits - Abdominal General gastrointestinal: Present: soft, non-tender, non-distended, normal bowel sounds Male genitourinary: Present: normal - Integumentary Integumentary: Present: clear, warm, dry - Musculoskeletal Musculoskeletal: gait normal, strength equal bilaterally - Psychiatric Psychiatric: appropriate mood/affect, intact judgment & insight - Neurologic Neurologic: CNII-XII intact, moves all extremities HEART Score - HEART Score Troponin: Troponin T 0.099 ng/mL (0.00-0.029) H 09/29/20 12:46 Results - Labs CBC & Chem 7: 09/29/20 12:46 09/29/20 17:28 Labs: Abnormal lab results 09/29/20 09/29/20 09/29/20 Range/Units 12:46 12:46 12:46 RBC 3.09 L (3.65-5.03) M/mm3 Hgb 10.3 L (11.8-15.2) gm/dl Hct 30.8 L (35.5-45.6) % MCV 100 H (84-94) fl MCH 33 H (28-32) pg RDW 19.4 H (13.2-15.2) % Plt Count 119 L (140-440) K/mm3 [place] % (Auto) 9.9 H (0.0-7.3) % PT 38.4 H (12.2-14.9) Sec. INR 3.84 H (0.87-1.13) APTT 46.2 H (24.2-36.6) Sec. Sodium (137-145) mmol/L Potassium (3.6-5.0) mmol/L Chloride (98-107) mmol/L BUN (9-20) mg/dL Creatinine (0.8-1.3) mg/dL Glucose (75-100) mg/dL Magnesium (1.7-2.3) mg/dL Direct Bilirubin (0-0.2) mg/dL Alkaline Phosphatase (35-129) units/L Lactate Dehydrogenase 223 H (91-180) units/L Troponin T (0.00-0.029) ng/mL C-Reactive Protein 3.20 H (0.00-1.30) mg/dL Albumin (3.9-5) g/dL 09/29/20 Range/Units 12:46 RBC (3.65-5.03) M/mm3 Hgb (11.8-15.2) gm/dl Hct (35.5-45.6) % MCV (84-94) fl MCH (28-32) pg RDW (13.2-15.2) % Plt Count (140-440) K/mm3 [place] % (Auto) (0.0-7.3) % PT (12.2-14.9) Sec. INR (0.87-1.13) APTT (24.2-36.6) Sec. Sodium 133 L (137-145) mmol/L Potassium 5.5 H (3.6-5.0) mmol/L Chloride 88.1 L (98-107) mmol/L BUN 59 H (9-20) mg/dL Creatinine 13.0 H (0.8-1.3) mg/dL Glucose 101 H (75-100) mg/dL Magnesium 2.90 H (1.7-2.3) mg/dL Direct Bilirubin 0.3 H (0-0.2) mg/dL Alkaline Phosphatase 145 H (35-129) units/L Lactate Dehydrogenase (91-180) units/L Troponin T 0.099 H (0.00-0.029) ng/mL C-Reactive Protein (0.00-1.30) mg/dL Albumin 3.7 L (3.9-5) g/dL Assessment and Plan - Patient Problems (1) CHF (congestive heart failure) Current Visit: Yes Status: Acute Qualifiers: Heart failure type: systolic Heart failure chronicity: acute on chronic Qualified Code(s): I50.23 - Acute on chronic systolic (congestive) heart failure Plan to address problem: Strict I/O, monitor urine output every shift, daily weight, afterload reduction, blood pressure control, diuresis, dialysis as per renal team. (2) Person under investigation for COVID-19 Current Visit: Yes Status: Acute Plan to address problem: Coronavirus protocol: Contact precautions, isolation precautions, coronavirus PCR ordered and is pending at time of admission, supportive care, prone positioning while in bed, (3) End-stage renal disease needing dialysis Current Visit: Yes Status: Chronic Plan to address problem: Strict I's/O, monitor urine output every shift, daily weight, avoid nephrotoxic agents, nephrology team consulted. Dialysis as per renal team. (4) Hyperlipidemia Current Visit: No Status: Chronic Qualifiers: Hyperlipidemia type: mixed hyperlipidemia Qualified Code(s): E78.2 - Mixed hyperlipidemia Plan to address problem: Low-cholesterol diet, statin therapy, (5) Hypertension Current Visit: No Status: Chronic Qualifiers: Hypertension type: essential hypertension Qualified Code(s): I10 - Essential (primary) hypertension Plan to address problem: Monitor blood pressure every shift, continue medical management. (6) Paroxysmal atrial fibrillation Current Visit: No Status: Chronic Plan to address problem: Continue therapeutic anticoagulation with Coumadin. Pharmacy consulted. (7) DVT prophylaxis Current Visit: No Status: Acute Plan to address problem: SCD to bilateral lower extremities while in bed continue therapeutic anticoa gulation
--- NOTE | 2020-09-29 15:25 | Emergency Department Report ---
ED General Adult HPI - General Chief complaint: Dizziness Stated complaint: FLU LIKE SYMPTOMS Time Seen by Provider: 09/29/20 11:48 Source: patient, EMS Mode of arrival: Wheelchair Limitations: No Limitations - History of Present Illness Severity scale (0 -10): 7 Associated Symptoms: denies other symptoms, weakness - Related Data Home Medications Medication Instructions Recorded Confirmed Last Taken Darunavir [Prezista] 800 mg PO QDAY 07/22/13 05/08/20 05/06/19 Ritonavir 100 mg PO QDAY 07/22/13 05/08/20 05/06/19 carvediloL [Coreg] 25 mg PO BID 07/22/13 05/08/20 05/06/19 dilTIAZem XT (NF) [Taztia Xt (Nf)] 360 mg PO QDAY 07/22/13 05/08/20 05/06/19 hydrALAZINE [Apresoline TAB] 50 mg PO TID 07/22/13 05/08/20 05/06/19 lamiVUDine [Epivir] 50 mg PO 3XW 11/10/14 05/08/20 05/06/19 Abacavir [Ziagen TAB] 300 mg PO BID 10/01/15 05/08/20 05/06/19 Abacavir [Ziagen TAB] 300 mg PO BID 10/01/15 05/08/20 05/06/19 levETIRAcetam [Keppra TAB] 500 mg PO BID 10/01/15 05/08/20 05/06/19 AtorvaSTATin [Lipitor] 20 mg PO QDAY 04/05/16 05/08/20 05/06/19 Gemfibrozil [Lopid] 600 mg PO BID 04/05/16 05/08/20 05/06/19 Warfarin [Coumadin] 5 mg PO QDAY 04/05/16 05/08/20 05/06/19 Ferric Citrate (Nf) [Auryxia] 410 mg PO TID 05/07/19 05/08/20 05/06/19 Allergies Allergy/AdvReac Type Severity Reaction Status Date / Time No Known Allergies Allergy Verified 04/05/16 10:48 ED Review of Systems ROS: Stated complaint: FLU LIKE SYMPTOMS Other details as noted in HPI Constitutional: weakness Eyes: denies: eye pain, vision change ENT: denies: throat pain, epistaxis Respiratory: SOB with exertion. denies: orthopnea, stridor Cardiovascular: denies: chest pain, palpitations Endocrine: no symptoms reported Gastrointestinal: denies: abdominal pain, vomiting Genitourinary: as per HPI Musculoskeletal: other (Essentially chronic allodynia) Skin: denies: rash, lesions Neurological: denies: headache, weakness Psychiatric: denies: anxiety, depression Hematological/Lymphatic: denies: easy bleeding, easy bruising ED Past Medical Hx - Past Medical History Hx Hypertension: Yes Hx CVA: Yes Hx Heart Attack/AMI: No Hx Congestive Heart Failure: Yes Hx Diabetes: No Hx GERD: Yes Hx Renal Disease: Yes (M_W_F, last dialyzed M) Hx Sickle Cell Disease: No Hx Seizures: Yes Hx Asthma: Yes (bronchitis) Hx COPD: No Hx HIV: Yes Additional medical history: fistula right upper arm - Surgical History Additional Surgical History: right arm shunt /dialysis. Hemodialysis on Sunday - Social History Smoking Status: Current Every Day Smoker - Medications Home Medications: Home Medications Medication Instructions Recorded Confirmed Last Taken Type Darunavir [Prezista] 800 mg PO QDAY 07/22/13 05/08/20 05/06/19 History Ritonavir 100 mg PO QDAY 07/22/13 05/08/20 05/06/19 History carvediloL [Coreg] 25 mg PO BID 07/22/13 05/08/20 05/06/19 History dilTIAZem XT (NF) [Taztia Xt (Nf)] 360 mg PO QDAY 07/22/13 05/08/20 05/06/19 History hydrALAZINE [Apresoline TAB] 50 mg PO TID 07/22/13 05/08/20 05/06/19 History lamiVUDine [Epivir] 50 mg PO 3XW 11/10/14 05/08/20 05/06/19 History Abacavir [Ziagen TAB] 300 mg PO BID 10/01/15 05/08/20 05/06/19 History Abacavir [Ziagen TAB] 300 mg PO BID 10/01/15 05/08/20 05/06/19 History levETIRAcetam [Keppra TAB] 500 mg PO BID 10/01/15 05/08/20 05/06/19 History AtorvaSTATin [Lipitor] 20 mg PO QDAY 04/05/16 05/08/20 05/06/19 History Gemfibrozil [Lopid] 600 mg PO BID 04/05/16 05/08/20 05/06/19 History Warfarin [Coumadin] 5 mg PO QDAY 04/05/16 05/08/20 05/06/19 History Ferric Citrate (Nf) [Auryxia] 410 mg PO TID 05/07/19 05/08/20 05/06/19 History ED Physical Exam - General Limitations: No Limitations General appearance: alert ED Course Vital Signs 09/29/20 09/29/20 09/29/20 06:49 11:19 11:45 Temperature 97.3 F L 97.8 F Pulse Rate 74 75 76 Respiratory 18 18 22 Rate Blood Pressure 140/84 135/76 155/83 O2 Sat by Pulse 100 95 100 Oximetry 09/29/20 09/29/20 09/29/20 11:56 12:01 12:15 Temperature Pulse Rate 92 H 77 75 Respiratory 18 36 H 26 H Rate Blood Pressure 135/53 135/53 O2 Sat by Pulse 95 99 97 Oximetry 09/29/20 09/29/20 09/29/20 12:31 12:45 12:57 Temperature Pulse Rate 77 78 Respiratory 18 20 18 Rate Blood Pressure 135/53 135/53 O2 Sat by Pulse 98 100 Oximetry ED Medical Decision Making - Lab Data Result diagrams: 09/29/20 12:46 09/29/20 12:46 Laboratory Results - last 24 hr 09/29/20 09/29/20 09/29/20 12:46 12:46 12:46 WBC RBC Hgb Hct MCV MCH MCHC RDW Plt Count Lymph % (Auto) [place] % (Auto) Eos % (Auto) Baso % (Auto) Lymph # (Auto) [place] # (Auto) Eos # (Auto) Baso # (Auto) Seg Neutrophils % Seg Neutrophils # PT 38.4 H INR 3.84 H APTT 46.2 H D-Dimer 145.03 Sodium Potassium Chloride Carbon Dioxide Anion Gap BUN Creatinine Estimated GFR BUN/Creatinine Ratio Glucose 100 Lactic Acid Calcium Magnesium Ferritin 1292.0 H Total Bilirubin Direct Bilirubin Indirect Bilirubin AST ALT Alkaline Phosphatase Lactate Dehydrogenase 223 H Troponin T C-Reactive Protein 3.20 H NT-Pro-B Natriuret Pep Total Protein Albumin Albumin/Globulin Ratio Procalcitonin 09/29/20 09/29/20 09/29/20 12:46 12:46 12:46 WBC 5.2 RBC 3.09 L Hgb 10.3 L Hct 30.8 L MCV 100 H MCH 33 H MCHC 33 RDW 19.4 H Plt Count 119 L Lymph % (Auto) 28.4 [place] % (Auto) 9.9 H Eos % (Auto) 3.3 Baso % (Auto) 1.0 Lymph # (Auto) 1.5 [place] # (Auto) 0.5 Eos # (Auto) 0.2 Baso # (Auto) 0.1 Seg Neutrophils % 57.4 Seg Neutrophils # 3.0 PT INR APTT D-Dimer Sodium 133 L Potassium 5.5 H Chloride 88.1 L Carbon Dioxide 29 Anion Gap 21 BUN 59 H Creatinine 13.0 H Estimated GFR 5 BUN/Creatinine Ratio 5 Glucose 101 H Lactic Acid Calcium 10.2 Magnesium 2.90 H Ferritin Total Bilirubin 0.60 Direct Bilirubin 0.3 H Indirect Bilirubin 0.3 AST 13 ALT 8 Alkaline Phosphatase 145 H Lactate Dehydrogenase Troponin T 0.099 H C-Reactive Protein NT-Pro-B Natriuret Pep 109428 H Total Protein 6.5 Albumin 3.7 L Albumin/Globulin Ratio 1.3 Procalcitonin 0.22 09/29/20 12:46 WBC RBC Hgb Hct MCV MCH MCHC RDW Plt Count Lymph % (Auto) [place] % (Auto) Eos % (Auto) Baso % (Auto) Lymph # (Auto) [place] # (Auto) Eos # (Auto) Baso # (Auto) Seg Neutrophils % Seg Neutrophils # PT INR APTT D-Dimer Sodium Potassium Chloride Carbon Dioxide Anion Gap BUN Creatinine Estimated GFR BUN/Creatinine Ratio Glucose Lactic Acid 1.40 Calcium Magnesium Ferritin Total Bilirubin Direct Bilirubin Indirect Bilirubin AST ALT Alkaline Phosphatase Lactate Dehydrogenase Troponin T C-Reactive Protein NT-Pro-B Natriuret Pep Total Protein Albumin Albumin/Globulin Ratio Procalcitonin - EKG Data -: EKG Interpreted by Me (Yet pending, nurse informed) Critical care attestation.: If time is entered above; I have spent that time in minutes in the direct care of this critically ill patient, excluding procedure time. ED Disposition Clinical Impression: CKD (chronic kidney disease) requiring chronic dialysis, Elevated troponin, Over-anticoagulated, Person under investigation for COVID-19 Cardiomyopathy Qualifiers: Cardiomyopathy type: unspecified Qualified Code(s): I42.9 - Cardiomyopathy, unspecified Volume overload Qualifiers: Hypervolemia type: unspecified Qualified Code(s): E87.70 - Fluid overload, unspecified Disposition: OP ADMIT IP TO THIS HOSP Is pt being admited?: Yes Does the pt Need Aspirin: No (Over anticoagulated) Condition: Stable Referrals: PRIMARY CARE, [Primary Care Provider] - 3-5 Days Time of Disposition: 15:25
[2020-09-29 16:08] LABS: Hepatitis B Surface Antigen Non-Reactive (Negative); Hepatitis C Virus Antibody Non-Reactive (NonReactive)
[2020-09-29] MEDS ORDERED: ONDANSETRON 4 MG/2 ML INJ IV PRN (16:51)
[2020-09-29] MEDS ORDERED: ACETAMINOPHEN 325 MG TAB PO PRN (16:51)
[2020-09-29] MEDS ORDERED: ALBUTEROL 2.5 MG/3 ML NEBU IH PRN (16:51)
--- NOTE | 2020-09-29 17:49 | Cat Scan Report ---
CT head/brain wo con INDICATION / CLINICAL INFORMATION: 55 years Male; confusion. TECHNIQUE: Routine CT head without contrast. All CT scans at this location are performed using CT dos e reduction for ALARA by means of automated exposure control. COMPARISON: The study is compared to the previous CT of 05/07/2020. FINDINGS: BRAIN / INTRACRANIAL CONTENTS: There is continued encephalomalacia involving anterior, inferior front al lobes which may be related to previous trauma given the location. There is otherwise mild cerebral and left pontine white matter disease most consistent with microvascular angiopathy. There appear to be chronic focal ischemic changes along the high left frontal subcortical region. There is mild cerebral atrophy with associated mild prominence of the ventricular system. There is no clear CT evidence of acute intracranial hemorrhage or significant mass effect. ORBITS: No significant abnormality of visualized orbits. SINUSES / MASTOIDS: No significant abnormality in the visualized paranasal sinuses or mastoid air camille ls. CRANIOCERVICAL JUNCTION: No significant abnormality. ADDITIONAL FINDINGS: None. IMPRESSION: 1. There is continued encephalomalacia involving frontal lobes and microvascular angiopathy as detail ed above at. There is no CT evidence of acute intracranial hemorrhage or significant overall change f rom 05/07/2020. Signer Name: Valeriano Bryant MD Signed: 09/29/2020 5:44 PM Workstation Name: [id number]
[2020-09-29 18:25] LABS: C-Reactive Protein 3.3 mg/dL (0.00-1.30)
--- NOTE | 2020-09-29 20:16 | Consultation ---
History of Present Illness - Reason for Consult Consult date: 09/29/20 end stage renal disease - History of Present Illness This is a 55 year-old man with ESRD who presents for generalized weakness and flu like symptoms Patient usually dialyzes MWF at [address], follows with Dr. Earl. Last HD 09/27, went to outpatient HD today but sent to ED due to feeling weak. Per patient, feels like he has the flu with muscle aches and weakness. Denies any recent issues with HD, including dizziness, lightheadedness, cramping, chest pain on HD. Currently, patient denies any other issues including dyspnea, edema, access issues, nausea, vomiting, headaches. Past History Past Medical History: atrial fib, ESRD, GERD, HIV/AIDS, hypertension, hyperlipidemia, other (See HPI) Past Surgical History: Other (Dialysis access) Social history: single, smoking. denies: alcohol abuse, prescription drug abuse Family history: diabetes, hypertension Medications and Allergies Allergies Allergy/AdvReac Type Severity Reaction Status Date / Time No Known Allergies Allergy Verified 04/05/16 10:48 Home Medications Medication Instructions Recorded Confirmed Last Taken Type Darunavir [Prezista] 800 mg PO QDAY 07/22/13 05/08/20 05/06/19 History Ritonavir 100 mg PO QDAY 07/22/13 05/08/20 05/06/19 History carvediloL [Coreg] 25 mg PO BID 07/22/13 05/08/20 05/06/19 History dilTIAZem XT (NF) [Taztia Xt (Nf)] 360 mg PO QDAY 07/22/13 05/08/20 05/06/19 History hydrALAZINE [Apresoline TAB] 50 mg PO TID 07/22/13 05/08/20 05/06/19 History lamiVUDine [Epivir] 50 mg PO 3XW 11/10/14 05/08/20 05/06/19 History Abacavir [Ziagen TAB] 300 mg PO BID 10/01/15 05/08/20 05/06/19 History Abacavir [Ziagen TAB] 300 mg PO BID 10/01/15 05/08/20 05/06/19 History levETIRAcetam [Keppra TAB] 500 mg PO BID 10/01/15 05/08/20 05/06/19 History AtorvaSTATin [Lipitor] 20 mg PO QDAY 04/05/16 05/08/20 05/06/19 History Gemfibrozil [Lopid] 600 mg PO BID 04/05/16 05/08/20 05/06/19 History Warfarin [Coumadin] 5 mg PO QDAY 04/05/16 05/08/20 05/06/19 History Ferric Citrate (Nf) [Auryxia] 410 mg PO TID 05/07/19 05/08/20 05/06/19 History Active Meds: Active Medications Abacavir Sulfate (Ziagen) 300 mg PO BID RAKESH Acetaminophen (Tylenol) 650 mg PO Q4H PRN PRN Reason: Pain MILD(1-3)/Fever >100.5/[place] Albuterol (Proventil) 2.5 mg IH Q4HRT PRN PRN Reason: Shortness Of Breath Atorvastatin Calcium (Lipitor) 20 mg PO QHS [facility] Carvedilol (Coreg) 25 mg PO BID [facility] Diltiazem HCl (Cardizem Cd) 360 mg PO QDAY [facility] Gemfibrozil (Lopid) 600 mg PO BID [facility] Hydralazine HCl (Apresoline) 50 mg PO TID RAKESH Lamivudine (Epivir) 50 mg PO 3XW RAKESH Levetiracetam (Keppra) 500 mg PO BID RAKESH Miscellaneous Medication (Darunavir [Prezista]) 800 mg PO QDAY [facility] Miscellaneous Medication (Ferric Citrate (Nf)) 410 mg PO TID [facility] Ondansetron HCl (Zofran) 4 mg IV Q8H PRN PRN Reason: Nausea And Vomiting Ritonavir (Ritonavir) 100 mg PO QDAY [facility] Sodium Chloride (Sodium Chloride Flush Syringe 10 Ml) 10 ml IV BID RAKESH Sodium Chloride (Sodium Chloride Flush Syringe 10 Ml) 10 ml IV PRN PRN PRN Reason: LINE FLUSH Warfarin Sodium (Coumadin) 5 mg PO QDAY RAKESH; Protocol Review of Systems All systems: negative (as per HPI) Exam - Vital Signs Vital signs: Vital Signs Temp Pulse Resp BP Pulse Ox 97.3 F L 74 18 140/84 100 09/29/20 06:49 09/29/20 06:49 09/29/20 06:49 09/29/20 06:49 09/29/20 06:49 - Physical Exam Narrative exam: Constitutional: mild acute distress, covering face due to feeling poorly Head: NC/AT Neck: supple Lungs: clear to auscultation CV: RRR, no M/R/G Abdomen: soft, non-tender, bowel sounds present Back: nontender Extremities: no edema, pulses WNL Skin: intact Neuro: no focal deficits, alert and oriented x4 Results - Lab Results 09/29/20 12:46 09/29/20 17:28 Most recent lab results Calcium 10.2 mg/dL (8.4-10.2) 09/29/20 12:46 Magnesium 2.80 mg/dL (1.7-2.3) H 09/29/20 17:28 Assessment and Plan This is a 55 year old man who presents with generalized weakness # ESRD: HD today for electrolyte management (hyperkalemic to 5.5) and volume control, plan to continue HD MWF or prn - daily labs - renally dose meds - avoid nephrotoxins - renal diet # Anemia: last hemoglobin 10.3, no indication for ESAs acutely # HTN: UF as tolerated. BP reasonable # Secondary Hyperparathyroidism: continue home binders as needed # CHF # Concern for COVID-19 # Paroxysmal atrial fibrillation
[2020-09-29] MEDS: hydrALAZINE 25 MG TAB PO SCH (21:35)
[2020-09-29] MEDS: FERRIC CITRATE PO SCH (22:06)
[2020-09-29] MEDS: GEMFIBROZIL 600 MG TAB PO SCH (23:04)
[2020-09-29] MEDS: carvediloL 25 MG TAB PO SCH (23:04)
[2020-09-29] MEDS: levETIRAcetam 500 MG TAB PO SCH (23:04)
[2020-09-29] MEDS: ABACAVIR 300 MG TAB PO SCH (23:05)
--- NOTE | 2020-09-30 08:04 | Progress Note ---
Assessment and Plan Assessment and plan: (1) CHF (congestive heart failure) Current Visit: Yes Status: Acute Qualifiers: Heart failure type: systolic Heart failure chronicity: acute on chronic Qualified Code(s): I50.23 - Acute on chronic systolic (congestive) heart failure Plan to address problem: Strict I/O, monitor urine output every shift, daily weight, afterload reduction, blood pressure control, diuresis, dialysis as per renal team. (2) Person under investigation for COVID-19 Current Visit: Yes Status: Acute Plan to address problem: Coronavirus protocol: Contact precautions, isolation precautions, coronavirus PCR ordered and is pending at time of admission, supportive care, prone positioning while in bed, (3) End-stage renal disease needing dialysis Current Visit: Yes Status: Chronic Plan to address problem: Strict I's/O, monitor urine output every shift, daily weight, avoid nephrotoxic agents, nephrology team consulted. Dialysis as per renal team. (4) Hyperlipidemia Current Visit: No Status: Chronic Qualifiers: Hyperlipidemia type: mixed hyperlipidemia Qualified Code(s): E78.2 - Mixed hyperlipidemia Plan to address problem: Low-cholesterol diet, statin therapy, (5) Hypertension Current Visit: No Status: Chronic Qualifiers: Hypertension type: essential hypertension Qualified Code(s): I10 - Essential (primary) hypertension Plan to address problem: Monitor blood pressure every shift, continue medical management. (6) Paroxysmal atrial fibrillation Current Visit: No Status: Chronic Plan to address problem: Continue therapeutic anticoagulation with Coumadin. Pharmacy consulted. (7) DVT prophylaxis Current Visit: No Status: Acute Plan to address problem: SCD to bilateral lower extremities while in bed continue therapeutic anticoagulation 09/30/2020; COVID-19 test is pending. Hypertension is controlled. Nephrology is consulted for dialysis. Continue with warfarin. Continue his HIV medications. Patient wants to go home. He said he is feeling well. History Interval history: Patient was seen and evaluated this morning Patient said he wants to go home after he gets the result of Covid Patient is saturating well on room air no other complaints. Hospitalist Physical - Physical exam Narrative exam: Not in cardiopulmonary distress. The patient appeared well nourished and normally developed. Vital signs as documented. Head exam is unremarkable. No scleral icterus . Neck is without jugular venous distension, thyromegaly, or carotid bruits. Lungs are clear to auscultation. Cardiac exam reveals regular rate and Rhythm. Abdominal exam reveals normal bowel sounds, nontender, no organomegaly. Extremities are nonedematous and both femoral and pedal pulses are normal. EVENTS ADMINISTRATIVE ASSISTANT: Alert and oriented 3. No focal weakness. - Constitutional Vitals: Temp Pulse Resp BP Pulse Ox 98.5 F 81 21 138/62 100 09/29/20 22:00 09/30/20 06:00 09/30/20 06:00 09/30/20 06:00 09/30/20 06:00 General appearance: Present: mild distress HEART Score - HEART Score Troponin: Troponin T 0.099 ng/mL (0.00-0.029) H 09/29/20 12:46 Results - Labs CBC & Chem 7: 09/30/20 07:49 09/30/20 07:49 Labs: Laboratory Last Values WBC 5.2 K/mm3 (4.5-11.0) 09/29/20 12:46 RBC 3.09 M/mm3 (3.65-5.03) L 09/29/20 12:46 Hgb 10.3 gm/dl (11.8-15.2) L 09/29/20 12:46 Hct 30.8 % (35.5-45.6) L 09/29/20 12:46 MCV 100 fl (84-94) H 09/29/20 12:46 MCH 33 pg (28-32) H 09/29/20 12:46 MCHC 33 % (32-34) 09/29/20 12:46 RDW 19.4 % (13.2-15.2) H 09/29/20 12:46 Plt Count 119 K/mm3 (140-440) L 09/29/20 12:46 Lymph % (Auto) 28.4 % (13.4-35.0) 09/29/20 12:46 [place] % (Auto) 9.9 % (0.0-7.3) H 09/29/20 12:46 Eos % (Auto) 3.3 % (0.0-4.3) 09/29/20 12:46 Baso % (Auto) 1.0 % (0.0-1.8) 09/29/20 12:46 Lymph # (Auto) 1.5 K/mm3 (1.2-5.4) 09/29/20 12:46 [place] # (Auto) 0.5 K/mm3 (0.0-0.8) 09/29/20 12:46 Eos # (Auto) 0.2 K/mm3 (0.0-0.4) 09/29/20 12:46 Baso # (Auto) 0.1 K/mm3 (0.0-0.1) 09/29/20 12:46 Seg Neutrophils % 57.4 % (40.0-70.0) 09/29/20 12:46 Seg Neutrophils # 3.0 K/mm3 (1.8-7.7) 09/29/20 12:46 PT 38.4 Sec. (12.2-14.9) H 09/29/20 12:46 INR 3.84 (0.87-1.13) H 09/29/20 12:46 APTT 46.2 Sec. (24.2-36.6) H 09/29/20 12:46 D-Dimer 211.91 ng/mlDDU (0-234) 09/29/20 17:28 Sodium 133 mmol/L (137-145) L 09/29/20 12:46 Potassium 5.5 mmol/L (3.6-5.0) H 09/29/20 12:46 Chloride 88.1 mmol/L (98-107) L 09/29/20 12:46 Carbon Dioxide 29 mmol/L (22-30) 09/29/20 12:46 Anion Gap 21 mmol/L 09/29/20 12:46 BUN 59 mg/dL (9-20) H 09/29/20 12:46 Creatinine 13.0 mg/dL (0.8-1.3) H 09/29/20 12:46 Estimated GFR 5 ml/min 09/29/20 12:46 BUN/Creatinine Ratio 5 % 09/29/20 12:46 Glucose 99 mg/dL (75-100) 09/29/20 17:28 Lactic Acid 1.40 mmol/L (0.7-2.0) 09/29/20 12:46 Calcium 10.2 mg/dL (8.4-10.2) 09/29/20 12:46 Magnesium 2.80 mg/dL (1.7-2.3) H 09/29/20 17:28 Ferritin 1756.0 ng/mL (30.0-300.0) H 09/29/20 17:28 Total Bilirubin 0.60 mg/dL (0.1-1.2) 09/29/20 12:46 Direct Bilirubin 0.3 mg/dL (0-0.2) H 09/29/20 12:46 Indirect Bilirubin 0.3 mg/dL 09/29/20 12:46 AST 13 units/L (5-40) 09/29/20 12:46 ALT 8 units/L (7-56) 09/29/20 12:46 Alkaline Phosphatase 145 units/L (35-129) H 09/29/20 12:46 Lactate Dehydrogenase 232 units/L (91-180) H 09/29/20 17:28 Troponin T 0.099 ng/mL (0.00-0.029) H 09/29/20 12:46 C-Reactive Protein 3.30 mg/dL (0.00-1.30) H 09/29/20 17:28 NT-Pro-B Natriuret Pep 499407 pg/mL (0-900) H 09/29/20 12:46 Total Protein 6.5 g/dL (6.3-8.2) 09/29/20 12:46 Albumin 3.7 g/dL (3.9-5) L 09/29/20 12:46 Albumin/Globulin Ratio 1.3 % 09/29/20 12:46 Procalcitonin 0.22 ng/mL (<0.15) 09/29/20 12:46 Hepatitis A IgM Ab Non-reactive (NonReactive) 09/29/20 15:21 Hep Bs Antigen Non-reactive (Negative) 09/29/20 15:21 Hep B Core IgM Ab Non-reactive (NonReactive) 09/29/20 15:21 Hepatitis C Antibody Non-reactive (NonReactive) 09/29/20 15:21 [place]/IV: IV Catheter Type [left forearm Peripheral IV ] Active Medications - Current Medications Current Medications: Generic Name Dose Route Start Last Admin Trade Name Freq PRN Reason Stop Dose Admin Abacavir Sulfate 300 mg 09/29/20 22:00 09/29/20 23:05 Ziagen PO 300 mg BID RAKESH Administration Acetaminophen 650 mg 09/29/20 16:51 Tylenol PO Q4H PRN Pain MILD(1-3)/Fever >100.5/[place] Albuterol 2.5 mg 09/29/20 16:51 Proventil IH Q4HRT PRN Shortness Of Breath Atorvastatin Calcium 20 mg 09/30/20 22:00 Lipitor PO QHS [facility] Carvedilol 25 mg 09/29/20 22:00 09/29/20 23:04 Coreg PO 25 mg BID RAKESH Administration Darunavir 800 mg 09/30/20 10:00 Prezista PO QDAY [facility] Diltiazem HCl 360 mg 09/30/20 10:00 Cardizem Cd PO QDAY [facility] Gemfibrozil 600 mg 09/29/20 22:00 09/29/20 23:04 Lopid PO 600 mg BID [facility] Administration Hydralazine HCl 50 mg 09/29/20 20:00 09/29/20 21:35 Apresoline PO Not Given TID [facility] Lamivudine 50 mg 09/30/20 10:00 Epivir PO TuThSa [facility] Levetiracetam 500 mg 09/29/20 22:00 09/29/20 23:04 Keppra PO 500 mg BID RAKESH Administration Miscellaneous Medication 410 mg 09/29/20 20:00 09/29/20 22:06 Ferric Citrate (Nf) PO Not Given TID [facility] Ondansetron HCl 4 mg 09/29/20 16:51 Zofran IV Q8H PRN Nausea And Vomiting Ritonavir 100 mg 09/30/20 10:00 Ritonavir PO QDAY [facility] Sodium Chloride 10 ml 09/29/20 22:00 09/29/20 23:05 Sodium Chloride Flush Syringe 10 Ml IV 10 ml BID RAKESH Administration Sodium Chloride 10 ml 09/29/20 16:51 Sodium Chloride Flush Syringe 10 Ml IV PRN PRN LINE FLUSH
[2020-09-30 08:13] LABS: Basophils # (Auto) 0.1 K/mm3 (0.0-0.1); Basophils % (Auto) 1.3 % (0.0-1.8); Eosinophils # (Auto) 0.2 K/mm3 (0.0-0.4); Eosinophils % (Auto) 2.8 % (0.0-4.3); Hematocrit 29.8 % (35.5-45.6); Hemoglobin 9.9 gm/dl (11.8-15.2); Lymphocytes # (Auto) 1.2 K/mm3 (1.2-5.4); Lymphocytes % (Auto) 20.3 % (13.4-35.0); Mean Corpuscular HGB Conc 33 % (32-34); Mean Corpuscular Volume 101 fl (84-94); Monocytes # (Auto) 0.5 K/mm3 (0.0-0.8); Monocytes % (Auto) 8.4 % (0.0-7.3); Platelet Count 112 K/mm3 (140-440); Red Blood Count 2.94 M/mm3 (3.65-5.03); Red Cell Distribution Width 19.9 % (13.2-15.2)
[2020-09-30 08:28] LABS: Calcium 9.5 mg/dL (8.4-10.2)
[2020-09-30] MEDS ORDERED: DILTIAZEM 360 MG PO SCH (10:00)
[2020-09-30] MEDS ORDERED: WARFARIN 5 MG TAB PO SCH (10:00)
[2020-09-30] MEDS ORDERED: dilTIAZem CD 180 MG CAP PO SCH (10:00)
[2020-09-30] MEDS ORDERED: DARUNAVIR 800 MG TAB PO SCH (10:00)
[2020-09-30] MEDS ORDERED: RITONAVIR 100 MG TAB PO SCH (10:00)
[2020-09-30] MEDS ORDERED: lamiVUDine 50 MG/5 ML ORAL LIQD PO SCH (10:00)
[2020-09-30] MEDS ORDERED: DARUNAVIR 800 MG PO SCH (10:00)
[2020-09-30] MEDS: levETIRAcetam 500 MG TAB PO SCH (10:47)
[2020-09-30] MEDS: hydrALAZINE 25 MG TAB PO SCH ×2 (10:47→15:10)
[2020-09-30] MEDS: carvediloL 25 MG TAB PO SCH (10:47)
[2020-09-30] MEDS: ABACAVIR 300 MG TAB PO SCH (10:48)
[2020-09-30] MEDS: GEMFIBROZIL 600 MG TAB PO SCH (10:49)
--- NOTE | 2020-09-30 11:35 | Consultation ---
History of Present Illness Consult date: 09/30/20 Requesting physician: MIKAEL PINEDA Consult reason: congestive heart failure History of present illness: The pt is a 55 YO male with a past medical history of RA thrombus, anticoagulated with coumadin, HIV, ESRD, HTN, HLP, anemia, seizure disorder, tobacco use. He is followed in our office by Dr. Weston Cruz. He is COVID-19 PUI and thus HPI is obtained per the chart. He presented with c/o "has not been feeling well" over the past 4 days with persistent fatigue, malaise, weakness, decreased exercise tolerance, dry cough. Patient presented to his outpatient dialysis center yesterday for his routine scheduled dialysis. Prior to dialysis patient reported "I feel like I have the flu". EMS was notified and the patient was subsequently transported to [facility] for further care and evaluation. LUCERO 10/2014:mod sized mass at the distal end of RA catheter (organized chronic thrombus), EF 55-60% TTE 09/2015: RA echodensity, EF 55-60% LUCERO 09/2015: No evidence of intracardiac thrombus/smoke or mass, RA/RV catheter noted, Normal LV function, No significant valvulopathy, Negative bubble study. Past History Past Medical History: ESRD, GERD, HIV/AIDS, hypertension, hyperlipidemia, other (See HPI) Past Surgical History: Other (Dialysis access) Social history: single, smoking. denies: alcohol abuse, prescription drug abuse Family history: diabetes, hypertension Medications and Allergies Allergies Allergy/AdvReac Type Severity Reaction Status Date / Time No Known Allergies Allergy Verified 04/05/16 10:48 Home Medications Medication Instructions Recorded Confirmed Last Taken Type Darunavir [Prezista] 800 mg PO QDAY 07/22/13 09/29/20 05/06/19 History Ritonavir 100 mg PO QDAY 07/22/13 09/29/20 05/06/19 History carvediloL [Coreg] 25 mg PO BID 07/22/13 09/29/20 05/06/19 History dilTIAZem XT (NF) [Taztia Xt (Nf)] 360 mg PO QDAY 07/22/13 09/29/20 05/06/19 History hydrALAZINE [Apresoline TAB] 50 mg PO TID 07/22/13 09/29/20 05/06/19 History lamiVUDine [Epivir] 50 mg PO 3XW 11/10/14 09/29/20 05/06/19 History Abacavir [Ziagen TAB] 300 mg PO BID 10/01/15 09/29/20 05/06/19 History Abacavir [Ziagen TAB] 300 mg PO BID 10/01/15 09/29/20 05/06/19 History levETIRAcetam [Keppra TAB] 500 mg PO BID 10/01/15 09/29/20 05/06/19 History AtorvaSTATin [Lipitor] 20 mg PO QDAY 04/05/16 09/29/20 05/06/19 History Gemfibrozil [Lopid] 600 mg PO BID 04/05/16 09/29/20 05/06/19 History Warfarin [Coumadin] 5 mg PO QDAY 04/05/16 09/29/20 05/06/19 History Ferric Citrate (Nf) [Auryxia] 410 mg PO TID 05/07/19 09/29/20 05/06/19 History Active Meds: Active Medications Abacavir Sulfate (Ziagen) 300 mg PO BID [facility] Last Admin: 09/30/20 10:48 Dose: 300 mg Documented by: Acetaminophen (Tylenol) 650 mg PO Q4H PRN PRN Reason: Pain MILD(1-3)/Fever >100.5/DICKINSON Albuterol (Proventil) 2.5 mg IH Q4HRT PRN PRN Reason: Shortness Of Breath Atorvastatin Calcium (Lipitor) 20 mg PO QHS [facility] Carvedilol (Coreg) 25 mg PO BID [facility] Last Admin: 09/30/20 10:47 Dose: 25 mg Documented by: Darunavir (Prezista) 800 mg PO QDAY [facility] Last Admin: 09/30/20 10:48 Dose: 800 mg Documented by: Diltiazem HCl (Cardizem Cd) 360 mg PO QDAY [facility] Last Admin: 09/30/20 10:49 Dose: 360 mg Documented by: Gemfibrozil (Lopid) 600 mg PO BID [facility] Last Admin: 09/30/20 10:49 Dose: 600 mg Documented by: Hydralazine HCl (Apresoline) 50 mg PO TID [facility] Last Admin: 09/30/20 10:47 Dose: 50 mg Documented by: Lamivudine (Epivir) 50 mg PO TuThSa [facility] Last Admin: 09/30/20 10:49 Dose: 50 mg Documented by: Levetiracetam (Keppra) 500 mg PO BID [facility] Last Admin: 09/30/20 10:47 Dose: 500 mg Documented by: Miscellaneous Medication (Ferric Citrate (Nf)) 410 mg PO TID [facility] Last Admin: 09/29/20 22:06 Dose: Not Given Documented by: Ondansetron HCl (Zofran) 4 mg IV Q8H PRN PRN Reason: Nausea And Vomiting Ritonavir (Ritonavir) 100 mg PO QDAY [facility] Last Admin: 09/30/20 10:49 Dose: 100 mg Documented by: Sodium Chloride (Sodium Chloride Flush Syringe 10 Ml) 10 ml IV BID [facility] Last Admin: 09/30/20 10:50 Dose: 10 ml Documented by: Sodium Chloride (Sodium Chloride Flush Syringe 10 Ml) 10 ml IV PRN PRN PRN Reason: LINE FLUSH Review of Systems Constitutional: malaise, no weight loss, no weight gain Ears, nose, mouth and throat: no ear pain, no nose pain, no sinus pressure, no sinus pain Cardiovascular: no chest pain, no orthopnea, no palpitations, no rapid/irregular heart beat, no edema, no syncope, no lightheadedness, no shortness of breath, no dyspnea on exertion Respiratory: cough, no shortness of breath, no dyspnea on exertion Gastrointestinal: no abdominal pain, no nausea, no vomiting, no diarrhea, no constipation, no change in bowel habits Genitourinary Male: no dysuria, no hematuria, no flank pain, no discharge, no urinary frequency, no urinary hesitancy Musculoskeletal: no neck stiffness, no neck pain, no shooting arm pain, no arm numbness/tingling, no low back pain, no shooting leg pain Integumentary: no rash, no pruritis, no redness, no sores, no wounds Neurological: no head injury, no paralysis, no weakness, no parathesias, no numbness, no tingling, no seizures, no syncope Psychiatric: no anxiety Endocrine: no cold intolerance, no heat intolerance Hematologic/Lymphatic: no easy bruising Allergic/Immunologic: no urticaria Physical Examination Vital Signs Temp Pulse Resp BP Pulse Ox 97.3 F L 74 18 140/84 100 12/09/20 06:49 09/29/20 06:49 09/29/20 06:49 09/29/20 06:49 09/29/20 06:49 Narrative exam: agree with physical examination per primary team Results 09/30/20 07:49 09/30/20 07:49 Cardiac Enzymes 09/29/20 09/29/20 09/29/20 Range/Units 12:46 12:46 17:28 AST 13 (5-40) units/L Lactate Dehydrogenase 223 H 232 H (91-180) units/L Coagulation 09/29/20 Range/Units 12:46 PT 38.4 H (12.2-14.9) Sec. INR 3.84 H (0.87-1.13) APTT 46.2 H (24.2-36.6) Sec. CBC 09/29/20 09/30/20 Range/Units 12:46 07:49 WBC 5.2 6.0 (4.5-11.0) K/mm3 RBC 3.09 L 2.94 L (3.65-5.03) M/mm3 Hgb 10.3 L 9.9 L (11.8-15.2) gm/dl Hct 30.8 L 29.8 L (35.5-45.6) % Plt Count 119 L 112 L (140-440) K/mm3 Lymph # (Auto) 1.5 1.2 (1.2-5.4) K/mm3 [place] # (Auto) 0.5 0.5 (0.0-0.8) K/mm3 Eos # (Auto) 0.2 0.2 (0.0-0.4) K/mm3 Baso # (Auto) 0.1 0.1 (0.0-0.1) K/mm3 Comprehensive Metabolic Panel 09/29/20 09/29/20 09/29/20 Range/Units 12:46 12:46 17:28 Sodium 133 L (137-145) mmol/L Potassium 5.5 H (3.6-5.0) mmol/L Chloride 88.1 L (98-107) mmol/L Carbon Dioxide 29 (22-30) mmol/L BUN 59 H (9-20) mg/dL Creatinine 13.0 H (0.8-1.3) mg/dL Glucose 100 101 H 99 (75-100) mg/dL Calcium 10.2 (8.4-10.2) mg/dL Direct Bilirubin 0.3 H (0-0.2) mg/dL Indirect Bilirubin 0.3 mg/dL AST 13 (5-40) units/L ALT 8 (7-56) units/L Alkaline Phosphatase 145 H (35-129) units/L Total Protein 6.5 (6.3-8.2) g/dL Albumin 3.7 L (3.9-5) g/dL 09/30/20 Range/Units 07:49 Sodium 137 (137-145) mmol/L Potassium 5.3 H (3.6-5.0) mmol/L Chloride 96.9 L (98-107) mmol/L Carbon Dioxide 28 (22-30) mmol/L BUN 31 H (9-20) mg/dL Creatinine 9.5 H (0.8-1.3) mg/dL Glucose 96 (75-100) mg/dL Calcium 9.5 (8.4-10.2) mg/dL Direct Bilirubin (0-0.2) mg/dL Indirect Bilirubin mg/dL AST (5-40) units/L ALT (7-56) units/L Alkaline Phosphatase (35-129) units/L Total Protein (6.3-8.2) g/dL Albumin (3.9-5) g/dL - Imaging and Cardiology EKG: report reviewed, image reviewed EKG interpretations - Telemetry EKG Rhythm: Sinus Rhythm - EKG Sinus rhythms and dysrhythmias: sinus rhythm Assessment and Plan Agree with present cardiac regimen. Coumadin currently held in setting of supratherapeutic INR - pharmacy to dose. Cont volume and electrolyte optimization per HD. COVID-19 testing is pending, plan to obtain tte pending test results. Will follow. The patient has been seen in conjunction with Dr. Fraga who agrees with the assessment and plan of care. - Patient Problems (1) Person under investigation for COVID-19 Current Visit: Yes Status: Acute (2) Volume overload Current Visit: Yes Status: Acute Qualifiers: Hypervolemia type: unspecified Qualified Code(s): E87.70 - Fluid overload, unspecified (3) ESRD on dialysis Current Visit: Yes Status: Chronic (4) Hyperkalemia Current Visit: Yes Status: Acute (5) Anemia Current Visit: Yes Status: Acute Qualifiers: Anemia type: due to chronic kidney disease (6) Thrombocytopenia Current Visit: Yes Status: Chronic (7) HIV (human immunodeficiency virus infection) Current Visit: Yes Status: Chronic Qualifiers: HIV symptom status: asymptomatic Qualified Code(s): Z21 - Asymptomatic human immunodeficiency virus [HIV] infection status (8) Seizure disorder Current Visit: Yes Status: Chronic (9) Hypertension Current Visit: Yes Status: Chronic Qualifiers: Hypertension type: essential hypertension Qualified Code(s): I10 - Essential (primary) hypertension (10) Hyperlipidemia Current Visit: Yes Status: Chronic Qualifiers: Hyperlipidemia type: mixed hyperlipidemia Qualified Code(s): E78.2 - Mixed hyperlipidemia (11) Intracardiac thrombosis Current Visit: Yes Status: Acute Plan to address problem: history of in 2014 (12) Supratherapeutic INR Current Visit: Yes Status: Acute
--- NOTE | 2020-09-30 12:46 | Progress Note ---
Assessment and Plan This is a 55 year old man who presents with generalized weakness # ESRD: HD yesterday for electrolyte management (hyperkalemic to 5.5) and volume control, plan to continue HD MWF or prn, no indication for HD today, plan for next treatment tomorrow - daily labs - renally dose meds - avoid nephrotoxins - renal diet # Anemia: last hemoglobin 10.3->9.9, no indication for ESAs acutely # HTN: UF as tolerated. BP reasonable # Secondary Hyperparathyroidism: continue home binders as needed # CHF # Concern for COVID-19 # Paroxysmal atrial fibrillation Subjective Date of service: 09/30/20 Interval history: No acute issues noted Objective - Exam Narrative Exam: Patient not directly examined today due to COVID-19 PPE conservation strategy, reviewed exam of primary team - Vital Signs Vital signs: Vital Signs - 12hr 09/30/20 09/30/20 09/30/20 01:00 02:00 03:00 Pulse Rate 81 81 81 Respiratory 26 H 18 20 Rate Blood Pressure 128/65 129/57 140/67 O2 Sat by Pulse 92 98 100 Oximetry 09/30/20 09/30/20 09/30/20 04:00 05:00 06:00 Pulse Rate 81 81 81 Respiratory 17 26 H 21 Rate Blood Pressure 140/67 149/74 138/62 O2 Sat by Pulse 94 100 100 Oximetry - Lab 09/30/20 07:49 09/30/20 07:49 Most recent lab results Calcium 9.5 mg/dL (8.4-10.2) 09/30/20 07:49 Magnesium 2.80 mg/dL (1.7-2.3) H 09/29/20 17:28 Medications & Allergies - Medications Allergies/Adverse Reactions: Allergies No Known Allergies Allergy (Verified 04/05/16 10:48) Home Medications: Home Medications Medication Instructions Recorded Confirmed Last Taken Type Darunavir [Prezista] 800 mg PO QDAY 07/22/13 09/29/20 05/06/19 History Ritonavir 100 mg PO QDAY 07/22/13 09/29/20 05/06/19 History carvediloL [Coreg] 25 mg PO BID 07/22/13 09/29/20 05/06/19 History dilTIAZem XT (NF) [Taztia Xt (Nf)] 360 mg PO QDAY 07/22/13 09/29/20 05/06/19 History hydrALAZINE [Apresoline TAB] 50 mg PO TID 07/22/13 09/29/20 05/06/19 History lamiVUDine [Epivir] 50 mg PO 3XW 11/10/14 09/29/20 05/06/19 History Abacavir [Ziagen TAB] 300 mg PO BID 10/01/15 09/29/20 05/06/19 History Abacavir [Ziagen TAB] 300 mg PO BID 10/01/15 09/29/20 05/06/19 History levETIRAcetam [Keppra TAB] 500 mg PO BID 10/01/15 09/29/20 05/06/19 History AtorvaSTATin [Lipitor] 20 mg PO QDAY 04/05/16 09/29/20 05/06/19 History Gemfibrozil [Lopid] 600 mg PO BID 04/05/16 09/29/20 05/06/19 History Warfarin [Coumadin] 5 mg PO QDAY 04/05/16 09/29/20 05/06/19 History Ferric Citrate (Nf) [Auryxia] 410 mg PO TID 05/07/19 09/29/20 05/06/19 History Active Medications: Generic Name Dose Route Start Last Admin Trade Name Freq PRN Reason Stop Dose Admin Abacavir Sulfate 300 mg 09/29/20 22:00 09/30/20 10:48 Ziagen PO 300 mg BID RAKESH Administration Acetaminophen 650 mg 09/29/20 16:51 Tylenol PO Q4H PRN Pain MILD(1-3)/Fever >100.5/DICKINSON Albuterol 2.5 mg 09/29/20 16:51 Proventil IH Q4HRT PRN Shortness Of Breath Atorvastatin Calcium 20 mg 09/30/20 22:00 Lipitor PO QHS RAKESH Carvedilol 25 mg 09/29/20 22:00 09/30/20 10:47 Coreg PO 25 mg BID RAKESH Administration Darunavir 800 mg 09/30/20 10:00 09/30/20 10:48 Prezista PO 800 mg QDAY RAKESH Administration Diltiazem HCl 360 mg 09/30/20 10:00 09/30/20 10:49 Cardizem Cd PO 360 mg QDAY RAKESH Administration Gemfibrozil 600 mg 09/29/20 22:00 09/30/20 10:49 Lopid PO 600 mg BID RAKESH Administration Hydralazine HCl 50 mg 09/29/20 20:00 09/30/20 10:47 Apresoline PO 50 mg TID RAKESH Administration Lamivudine 50 mg 09/30/20 10:00 09/30/20 10:49 Epivir PO 50 mg TuThSa RAKESH Administration Levetiracetam 500 mg 09/29/20 22:00 09/30/20 10:47 Keppra PO 500 mg BID RAKESH Administration Miscellaneous Medication 410 mg 09/29/20 20:00 09/29/20 22:06 Ferric Citrate (Nf) PO Not Given TID RAKESH Ondansetron HCl 4 mg 09/29/20 16:51 Zofran IV Q8H PRN Nausea And Vomiting Ritonavir 100 mg 09/30/20 10:00 09/30/20 10:49 Ritonavir PO 100 mg QDAY RAKESH Administration Sodium Chloride 10 ml 09/29/20 22:00 09/30/20 10:50 Sodium Chloride Flush Syringe 10 Ml IV 10 ml BID RAKESH Administration Sodium Chloride 10 ml 09/29/20 16:51 Sodium Chloride Flush Syringe 10 Ml IV PRN PRN LINE FLUSH
--- NOTE | 2020-09-30 13:32 | Discharge Summary ---
Providers - Providers Date of Admission: 09/29/20 16:51 Date of discharge: 09/30/20 Attending physician: TOMMIE BHATT MD 09/29/20 16:56 Consult to Physician [CONS] Routine Comment: Consulting Provider: GENNA ROSADO Physician Instructions: Reason For Exam: chf 09/29/20 16:58 Consult to Physician [CONS] Routine Comment: Consulting Provider: GLORIA ALCALA Physician Instructions: Reason For Exam: esrd Primary care physician: [facility] [employer] Hospitalization Reason for admission: ESRD on hemodialysis, PUI Condition: Stable Hospital course: 55 YO Male with HIV, ESRD on HD(M,W,F), HTN, HLD, Paroxysmal Atrial Fib, Anemia Chronic Disease, GERD, CHF, Seizure Disorder, Nicotine Dependence presents to ED for evaluation. Patient states that he "has not been feeling well" over the past 4 days with persistent symptoms over the same timeframe. Patient acknowledges fatigue, malaise, weakness, decreased exercise tolerance, dry cough. Patient presented to his outpatient dialysis center today for his routine scheduled dialysis. Prior to dialysis patient reported "I feel to have the flu". EMS was notified and the patient was subsequently transported to [facility] for further care and evaluation. Patient seen and evaluated in the emergency department. Lab and imaging studies reviewed. Patient initiated on coronavirus protocol prior to my evaluation. Patient found to have end-stage renal disease, paroxysmal atrial fibrillation, and symptoms consistent with congestive heart failure. Patient admitted to medical floor and initiated on CHF protocol, as well as coronavirus protocol. Nephrology team consulted in ED. Patient denies chills, chest pain, palpitations, skin rash, recent ill contacts. Patient is uncertain regarding his COVID-19 exposure. Prior admission on 05/07/2020 reviewed. All medication listed at time of admission has been reconciled. (1) CHF (congestive heart failure) Current Visit: Yes Status: Acute Qualifiers: Heart failure type: systolic Heart failure chronicity: acute on chronic Qualified Code(s): I50.23 - Acute on chronic systolic (congestive) heart failure Plan to address problem: Strict I/O, monitor urine output every shift, daily weight, afterload reduction, blood pressure control, diuresis, dialysis as per renal team. (2) Person under investigation for COVID-19 Current Visit: Yes Status: Acute Plan to address problem: Coronavirus protocol: Contact precautions, isolation precautions, coronavirus PCR ordered and is pending at time of admission, supportive care, prone positioning while in bed, (3) End-stage renal disease needing dialysis Current Visit: Yes Status: Chronic Plan to address problem: Strict I's/O, monitor urine output every shift, daily weight, avoid nephrotoxic agents, nephrology team consulted. Dialysis as per renal team. (4) Hyperlipidemia Current Visit: No Status: Chronic Qualifiers: Hyperlipidemia type: mixed hyperlipidemia Qualified Code(s): E78.2 - Mixed hyperlipidemia Plan to address problem: Low-cholesterol diet, statin therapy, (5) Hypertension Current Visit: No Status: Chronic Qualifiers: Hypertension type: essential hypertension Qualified Code(s): I10 - Essential (primary) hypertension Plan to address problem: Monitor blood pressure every shift, continue medical management. (6) Paroxysmal atrial fibrillation Current Visit: No Status: Chronic Plan to address problem: Continue therapeutic anticoagulation with Coumadin. Pharmacy consulted. (7) DVT prophylaxis Current Visit: No Status: Acute Plan to address problem: SCD to bilateral lower extremities while in bed continue therapeutic anticoagulation 09/30/2020; COVID-19 test is pending. Hypertension is controlled. Nephrology is consulted for dialysis. Continue with warfarin. Continue his HIV medications. Patient wants to go home. He said he is feeling well. COvid 19 test was negative called nephrology and recommended he can be discharged and continue dialysis MWF. Discussed with cardiology and said ok to discharge and will follow him in the office. Disposition: [id number] TO HOME OR SELFCARE Time spent for discharge: 32 minues - Discharge Diagnoses (1) Anemia Status: Acute Qualifiers: Anemia type: due to chronic kidney disease (2) CKD (chronic kidney disease) requiring chronic dialysis Status: Acute (3) Cardiomyopathy Status: Acute Qualifiers: Cardiomyopathy type: unspecified Qualified Code(s): I42.9 - Cardiomyopathy, unspecified (4) Hyperkalemia Status: Acute (5) Intracardiac thrombosis Status: Acute (6) Person under investigation for COVID-19 Status: Ruled-out (7) HIV (human immunodeficiency virus infection) Status: Chronic Qualifiers: HIV symptom status: asymptomatic Qualified Code(s): Z21 - Asymptomatic human immunodeficiency virus [HIV] infection status Comment: Continue antiretrovirals Core Measure Documentation - Palliative Care Palliative Care/ Comfort Measures: Not Applicable - Core Measures Any of the following diagnoses?: none Exam - Physical Exam Narrative exam: Not in cardiopulmonary distress. The patient appeared well nourished and normally developed. Vital signs as documented. Head exam is unremarkable. No scleral icterus . Neck is without jugular venous distension, thyromegaly, or carotid bruits. Lungs are clear to auscultation. Cardiac exam reveals regular rate and Rhythm. Abdominal exam reveals normal bowel sounds, nontender, no organomegaly. Extremities are nonedematous and both femoral and pedal pulses are normal. CORROSION CONTROL TECHNICIAN: Alert and oriented 3. No focal weakness. - Constitutional Vitals: Temp Pulse Resp BP Pulse Ox 98.5 F 81 21 138/62 100 09/29/20 22:00 09/30/20 06:00 09/30/20 06:00 09/30/20 06:00 09/30/20 06:00 Plan Activity: no restrictions Weight Bearing Status: Full Weight Bearing Diet: low salt, renal Follow up with: PRIMARY CAREMD [Primary Care Provider] - 3-5 Days Forms: Warfarin Discharge Instruction
[2020-09-30 14:00] LABS: INR 2.82 (0.87-1.13)
[2020-09-30 14:56] VITALS: BP 126/55
[2020-09-30] MEDS: FERRIC CITRATE PO SCH ×2 (15:08→15:09)
== END 2020-09-30 14:59 | disposition home or self-care (01) | DRG 291 ==
LOC: ED 06:32 → 3A 16:51
PROVIDERS: ADMIT Internal Medicine; ATTEND Internal Medicine
PROC: 5A1D70Z Performance of Urinary Filtration, Intermittent, Less than 6 Hours Per Day (ICD-10-PCS; principal; 2020-09-29)
DX: I13.2 Hypertensive heart and chronic kidney disease with heart failure and with stage 5 chronic kidney disease, or end stage renal disease (principal); I50.23 Acute on chronic systolic (congestive) heart failure; N18.6 End stage renal disease; B20 Human immunodeficiency virus [HIV] disease; N25.81 Secondary hyperparathyroidism of renal origin; Z20.828 Contact with and (suspected) exposure to other viral communicable diseases; K21.9 Gastro-esophageal reflux disease without esophagitis; F17.210 Nicotine dependence, cigarettes, uncomplicated; E87.70 Fluid overload, unspecified; E87.5 Hyperkalemia; G40.909 Epilepsy, unspecified, not intractable, without status epilepticus; I48.0 Paroxysmal atrial fibrillation; E78.2 Mixed hyperlipidemia; D63.1 Anemia in chronic kidney disease; Z83.3 Family history of diabetes mellitus; Z99.2 Dependence on renal dialysis; Z86.73 Personal history of transient ischemic attack (TIA), and cerebral infarction without residual deficits; Z82.49 Family history of ischemic heart disease and other diseases of the circulatory system; Z79.01 Long term (current) use of anticoagulants
CPT/HCPCS: 36415; 70450; 71045; 80048; 80074; 80076; 82140; 82728; 82947; 83615; 83735; 83880; 84145; 84439; 84443; 84484; 85025; 85379; 85610; 85730; 86140; 93005; G0378; U0003